=== PATIENT | male | born 1955 | race Caucasian/White ===

== ENCOUNTER 2024-07-05 10:20 | Inpatient (IN) ==
--- NOTE | 2024-06-30 10:07 | Anesthesiology Consultation ---
Date of Service June 30, 2024 Assessment & Plan (1) Encounter for pre-operative examination: - awaiting surgeon ordered medical clearance, Chetna Weston [facility]. - Per manager assessment on 06/30/24: No known infectious disease contacts, current infectious disease symptoms in past 10 days or COVID positive test result in the past 30 days. Chart Review Chart Review: Pending: Refer to Additional Notes / Consult section and Patient NOT seen in Pre Admission Testing History Surgery Operation Date: 07/05/24 12:15 Proposed Procedures p L3-L5 Revision Decompression and Fusion - Vickey Cohen, Height/Weight Height: 5 ft 9 in Weight: 86.183 kg Allergies Allergy/AdvReac Type Severity Reaction Status Date / Time bee venom protein (honey bee) Allergy Severe Anaphylaxis Verified 06/30/24 09:36 hydrocodone Allergy Severe Hives Verified 06/30/24 09:36 morphine Allergy Severe Hives Verified 06/30/24 09:36 oxycodone Allergy Severe Hives Verified 06/30/24 09:36 Medications Home Medications Medication Instructions Recorded Confirmed Last Taken multivitamin 1 tab PO QAM 01/07/22 06/30/24 02/04/22 sennosides 8.6 mg tablet 8.6 mg PO QAM 01/07/22 06/30/24 02/04/22 ascorbic acid (vitamin C) 250 mg 250 mg PO DAILY 06/30/24 06/30/24 Unknown tablet (Vitamin C) celecoxib 200 mg capsule 200 mg PO BID 06/30/24 06/30/24 Unknown cholecalciferol (vitamin D3) 125 125 mcg PO BID 06/30/24 06/30/24 Unknown mcg (5,000 unit) tablet (Vitamin D3) gabapentin 300 mg tablet 300 mg PO TID 06/30/24 06/30/24 Unknown saw palmetto 160 mg capsule 160 mg PO QAM 06/30/24 06/30/24 Unknown Past Medical History Medical History History of asthma no recent problems, no longer uses inhaler History of COVID-19 06/10, not hospitalized, fatigue, body aches>resolved History of postoperative nausea and vomiting severe, iv meds have not helped in past, questioning scop patch? Hx of fracture of ankle RT, fusion Hx of rotator cuff tear RT.- surgery Hx of sarcoidosis (1982) no current issues Past Family History Family History Other No pertinent family history Past Surgical History Surgical History History of back surgery x2; "ruptured" discs; removal bone spurs from spine History of bronchoscopy History of open reduction and internal fixation (ORIF) procedure RT ankle fusion History of right hip replacement (11/2023) dr. gallardo - fady Hx of bilateral cataract extraction (2021) Hx of cervical spine surgery x4; fusion "between your shoulders up to the last 2 of the top of my neck" c3-t2, anterior and posterior limited rom in all directions Hx of colonoscopy Hx of hernia repair triple hernia - [facility] Hx of rotator cuff surgery rt Social History Smoking Status: Never smoker Do You Dip or Chew Tobacco: No Hx Alcohol Use: Yes Alcohol type: beer alcohol intake frequency: a few times a week Hx Substance Use: No substance use type: does not use Lab Results Anesthesia Preop Results Results Anesthesia Widget: WBC 6.30 K/ul (4.8-10.8) 06/29/24 Hgb 14.5 g/dl (14.0-18.0) 06/29/24 Hct 42.3 % (42.0-52.0) 06/29/24 Plt 180 K/uL (130-400) 06/29/24 Na 137 mmol/L (136-145) 06/29/24 K 4.5 mmol/L (3.5-5.1) 06/29/24 Cl 103 mmol/L (98-107) 06/29/24 CO2 28 mmol/L (21-32) 06/29/24 BUN 22 mg/dl (6-23) 06/29/24 Creat 1.29 mg/dl (0.6-1.4) 06/29/24 Glucose Level 93 mg/dl (70-99(Fasting)) 06/29/24 PT 11.4 Seconds (9.0-12.0) 06/29/24 PTT 25 Seconds (21-31) 06/29/24 INR 1.1 (0.9-1.1) 06/29/24 Urine Color Yellow 06/29/24 Urine Appearance Clear (Clear) 06/29/24 Urine pH 6.0 (4.5-7.5) 06/29/24 Urine Specific [place] 1.009 (1.000-1.030) 06/29/24 Urine Protein Negative (Negative) 06/29/24 Urine Glucose (UA) Negative (Negative) 06/29/24 Urine Ketones Negative (Negative) 06/29/24 Urine Blood Negative (Negative) 06/29/24 Urine Nitrite Negative (Negative) 06/29/24 Urine Bilirubin Negative (Negative) 06/29/24 Urine Urobilinogen Negative (Negative) 06/29/24 Urine Leukocyte Esterase Negative (Negative) 06/29/24 Blood Type O Positive 06/29/24 Antibody Screen NEGATIVE 06/29/24 Testing Electrocardiogram Date: 06/29/24 Sinus bradycardia, rate 58 bpm Incomplete RBBB Chest X-Ray Date: 06/29/24 No acute cardiopulmonary disease.
[2024-07-05] MEDS ORDERED: LIDOCAINE 2% 2 ML VIAL/AMP(20MG/ML) INFIL ONE (10:41)
[2024-07-05] MEDS ORDERED: ROCURONIUM BROMIDE 10 MG/ML 5 ML VIAL IV ONE (10:41)
[2024-07-05] MEDS ORDERED: PROPOFOL IV EMULSION 10 MG/ML 20 ML VIAL IV ONE (10:41)
[2024-07-05] MEDS ORDERED: MIDAZOLAM HCL 1 MG/ML 2ML VIAL ONE (10:41)
[2024-07-05] MEDS ORDERED: fentaNYL citrate PF 100 MCG/2 ML VIAL ONE ×2 (10:41→14:32)
[2024-07-05] MEDS ORDERED: ONDANSETRON INJ 2 MG/ML 2 ML VIAL ONE ×2 (10:41→14:05)
[2024-07-05] MEDS ORDERED: DEXAMETHASONE SOD INJ 4 MG/ML VIAL ONE (10:41)
[2024-07-05] MEDS: LR 15ML/HR IV SCH (10:58)
[2024-07-05] MEDS: LR 60ML/HR IV SCH (10:58)
[2024-07-05] MEDS: GABAPENTIN 300 MG CAP PO SCH ×2 (10:58→20:29)
[2024-07-05] MEDS: CeleBREX 200 MG CAP PO SCH (10:58)
[2024-07-05] MEDS: ACETAMINOPHEN 500 MG TAB PO SCH (10:58)
--- NOTE | 2024-07-05 11:32 | History & Physical Bridge Note ---
Date of Service July 05, 2024 History & Physical Bridge Note I have examined the patient, reviewed the History & Physical and in the interval since the performance of the History & Physical I have noted the following changes of clinical significance: no changes noted
--- NOTE | 2024-07-05 11:33 | History & Physical Report ---
Date of Service July 05, 2024 Assessment & Plan (1) Lumbosacral spondylosis with radiculopathy: Plan: L3-L5 revision decompression and fusion History of Present Illness Chief Complaint: Back and bilateral leg pain Primary Care Provider: Chetna Larry This is a 69-year-old male who presents with chronic system back and bilateral leg pain and failing course of nonoperative care is here for surgical invention. Allergies Allergy/AdvReac Type Severity Reaction Status Date / Time bee venom protein (honey bee) Allergy Severe Anaphylaxis Verified 07/05/24 10:50 hydrocodone Allergy Severe Hives Verified 07/05/24 10:50 morphine Allergy Severe Hives Verified 07/05/24 10:50 oxycodone Allergy Severe Hives Verified 07/05/24 10:50 Home Medications Medication Instructions Recorded Confirmed Type multivitamin 1 tab PO QAM 01/07/22 07/05/24 History sennosides 8.6 mg tablet 8.6 mg PO QAM 01/07/22 07/05/24 History ascorbic acid (vitamin C) 250 mg 250 mg PO DAILY 06/30/24 07/05/24 History tablet (Vitamin C) celecoxib 200 mg capsule 200 mg PO BID 06/30/24 07/05/24 History cholecalciferol (vitamin D3) 125 125 mcg PO BID 06/30/24 07/05/24 History mcg (5,000 unit) tablet (Vitamin D3) gabapentin 300 mg tablet 300 mg PO TID 06/30/24 07/05/24 History saw palmetto 160 mg capsule 160 mg PO QAM 06/30/24 07/05/24 History Past Med/Surg History Problem List (Updated 07/05/24 @ 11:32 by Vickey Cohen DO) Lumbosacral spondylosis with radiculopathy Encounter for pre-operative examination Medical History History of asthma no recent problems, no longer uses inhaler History of COVID-19 06/10, not hospitalized, fatigue, body aches>resolved History of postoperative nausea and vomiting severe, iv meds have not helped in past, questioning scop patch? Hx of fracture of ankle RT, fusion Hx of rotator cuff tear RT.- surgery Hx of sarcoidosis (1982) no current issues Surgical History History of back surgery x2; "ruptured" discs; removal bone spurs from spine History of bronchoscopy History of open reduction and internal fixation (ORIF) procedure RT ankle fusion History of right hip replacement (11/2023) dr. gallardo - jack shrestha Hx of bilateral cataract extraction (2021) Hx of cervical spine surgery x4; fusion "between your shoulders up to the last 2 of the top of my neck" c3-t2, anterior and posterior limited rom in all directions Hx of colonoscopy Hx of hernia repair triple hernia - [facility] Hx of rotator cuff surgery rt Family History Other No pertinent family history Social History Smoking Status: Never smoker Second Hand Exposure: No; Do You Dip or Chew Tobacco: No; Tobacco Cessation Education Requested by Patient: No Hx Alcohol Use: Yes Alcohol type: beer Hx Substance Use: No Preferred Language: Tajik Communication Ability: Effective Destination Specialist Required: No Beliefs That Will Affect Care: None Current Living Situation: Spouse Other Information That Helps Us Care for You: No Feels Safe at Home: Yes Safety Concerns: Feels Safe At This Time Assistive Devices: Glasses Physical Exam Physical Exam: Patient is alert and oriented heart regular rhythm lungs clear Results & Data Results & Data Vital Signs (Past 12 Hours) Vital Signs Temp Pulse Resp BP Pulse Ox O2 Del Method 07/05/24 10:43 36.4 C L 97 H 20 155/97 H 97 Room Air
[2024-07-05] MEDS ORDERED: KETAMINE HCL 10MG/ML SYR ONE (11:54)
[2024-07-05] MEDS: ceFAZolin 2000MG 2,000 MG/15 ML SYR IV SCH ×2 (12:05→20:29)
[2024-07-05] MEDS ORDERED: diphenhydrAMINE 50 MG/ML VIAL ONE (12:30)
[2024-07-05] MEDS ORDERED: GLYCOPYRROLATE 0.2 MG/ML VIAL ONE ×3 (12:31→14:26)
[2024-07-05] MEDS ORDERED: PHENYLEPHRINE 100MCG/ML 5ML SYR ONE (12:39)
[2024-07-05] MEDS ORDERED: HYDROmorphone INJ 2 MG/ML SYR/VIAL IV PRN (12:40)
[2024-07-05] MEDS ORDERED: ONDANSETRON INJ 2 MG/ML 2 ML VIAL IV PRN (12:40)
[2024-07-05] MEDS ORDERED: ePHEDrine sulfate 50 MG/ML AMP IV PRN (12:40)
[2024-07-05] MEDS ORDERED: ATROPINE SULFATE 0.1 MG/ML 10ML SYR IV PRN (12:40)
[2024-07-05] MEDS ORDERED: PROMETHAZINE HCL 6.25 MG in SODIUM CHLORIDE 0.9% 50 ML IV PRN (12:40)
[2024-07-05] MEDS: ceFAZolin 330 MG/ML 1 GM VIAL ONE (12:57)
[2024-07-05] MEDS: BUPIVACAINE/EPINEPHRINE 0.25% 1:200,000 30 ML VIAL ONE (12:57)
[2024-07-05] MEDS ORDERED: ePHEDrine sulfate 50 MG/5 ML SYR ONE (13:04)
[2024-07-05] MEDS: FLOSEAL HEMOSTATIC MATRIX 10ML TOP ONE (14:20)
[2024-07-05] MEDS ORDERED: NEOSTIGMINE METHYLSULFATE 1 MG/ML 10ML VIAL ONE (14:26)
--- NOTE | 2024-07-05 14:31 | Operative Report ---
Post Operative Report Pre & Post Diagnosis Operation Date: 07/05/24 12:15 Pre-Op Diagnosis: #1 lumbosacral spondylosis with radiculopathy #2 lumbar spondylolisthesis with neurogenic claudication Post-Op Diagnosis: Same I identified the patient and participated in the time-out.: Yes Procedure Operation Date: 07/05/24 12:15 Actual Procedures #1 revision decompression with bilateral medial facetectomies and foraminotomies L3-L4 L4-L5. #2 posterior spinal fusion L3-L4 L4-L5. #3 placed posterior instrumentation L3-L5. #4 interbody fusion L3-L4 L4-L5 #5 placement of Spira 14 x 26 mm at L3-L4 and 13 x 26 mm x 2 at L4-L5. #6 placement locally harvested morselized autograft in the posterior gutters. #7 placement infuse collagen sponge combined with Koros in the posterior lateral gutters and os design interbody space. #8 application of versa wrap over the exposed dura. Surgeon Vickey Cohen, Plywood Matcher Zoie Hurst Estimated Blood Loss 200 Findings Consistent with Post-Op Diagnosis Specimens None Indications This is a 69-year-old male presents above-mentioned diagnosis after failing course of nonoperative care is here for surgical invention. Description of Procedure Patient was met with identified informed consent obtained. Patient was then taken to the operative suite underwent intubation placed in a prone position on the Wood table on top of the Flex frame. All bony prominences well-padded eyes inspected to ensure no external pressure placed upon them. This point the lumbar spine was prepped and draped in normal sterile fashion. Sharp dissection with the assistance of Bovie cautery performed down to and exposing the remaining lamina and transverse processes of L3 L4-5 bilaterally. From caudal to cephalad fashion revision complete laminectomy of L4 was performed including bilateral medial facetectomies and foraminotomies addressing severe subarticular and foraminal stenosis. Then performed a complete revision laminectomy of L3 with bilateral medial facetectomies and foraminotomies addressing severe spinal stenosis. Pedicle screws were then placed at L3-L4-L5 bilaterally with assistance of fluoroscopy and appropriate size jose francisco placed. By way of transforaminal approach on the left discectomy of L4-L5 was performed. Endplates guarded to subcortical bleeding bone and a 13 x 26 mm spiral cage filled with os design tapped in position. Then proceeded to the right transforaminal region at L4-L5. Discectomy performed. Endplates guided to subcortical bleeding bone and a second 13 x 26 mm Spira cage filled with os designed tapped into position. I then proceeded to L3-L4 by way of transforaminal approach on the left a complete discectomy was performed endplates corrected to subcortical bleeding bone and a 14 x 26 mm Spira cage filled with os designed tapped in position. The rods were then compressed locked in final position bilaterally. The transverse processes of L3 L4-5 burred to subcortical bleeding bone. Infuse collagen sponge, with Koros and locally harvested morselized graft placed in posterior gutters. Versa wrap placed over the exposed dura. 15 round CARSON drain inserted. Incision was then closed with 1 Vicryl the fascia 2-0 Vicryl subcutaneously and 4 Monocryl for final skin closure. Steri-Strips sterile dressing placed. Patient waken taken to PACU stable condition. Please note spinal cord monitoring was utilized at the procedure no changes noted. Zoie Hurst was present at the entire surgery involved the patient positioning complex portion of the surgery and fascial closure. Im ordering 20 grams of Triple Sapphire Collagen Powder ([employer] [id number]) to treat an incision wound that was caused by a spine procedure. The incision is approximately 2 cm(W) x 4 cm(L) into the joint (D) in size and is a full thickness wound. Triple Sapphire collagen comes in 1 gram packets so 20 packets were ordered. Given the size of the wound, with light to moderate exudate I chose to order a 20 day supply. The patient will be provided instructions for proper application of the collagen wound kit. The patient will be asked to apply the collagen powder daily and then cover it with sterile dressings dispensed. Collagen was selected as I expect the collagen to attract monocytes and fibroblasts, act as a sacrificial substrate for MMPs, and ultimately proved a matrix for tissue and vessel growth. The collagen will act as a primary dressing in this scenario. It is medically necessary for proper healing of th pancho wounds to improve bioavailability and contact with each wound surface, this is also to help prevent infection of wounds and promote healing ultimately leading to a better healing outcome and limit the risk of infection. I attest to the content of the Intraoperative Record and any orders documented therein. Any exceptions are noted below.
--- NOTE | 2024-07-05 14:42 | Fluoroscopy Report ---
FL lumbar spine 2-3V CLINICAL HISTORY: L3-L5 DECOMP/FUSION COMPARISON STUDY: None FLUOROSCOPY TIME: 27 seconds FLUOROSCOPY IMAGES: 2 EXPOSURE DOSE: 23.87 mGy FINDINGS: Posterior interbody rods and screw fusion hardware is noted at 3 levels which appears to be L3-L5. Hardware appears intact. No unexpected opaque foreign bodies. Note that the images were submi tted following completion of the surgery. IMPRESSION: Fluoroscopic assistance as above. ACT 112: Negative or not required by law. Electronically signed by: Pradip Keith M.D. 07/05/2024 2:41 PM
[2024-07-05] MEDS: fentaNYL citrate PF 100 MCG/2 ML VIAL IV PRN (15:05)
--- OUTSIDE RECORDS SUMMARY | 2024-07-05 15:11 | External Medical Summary | Continuity of Care Document ---
Author Name Unknown Organization [place] Address [address], [place] [address] Phone [phone] Care Team Providers Care Dumpster Driver Name Role Phone Cl Donaldson MD Care Team Information Recei stefan [phone] Problems Active Problems Provider Date Spinal stenosis of lumbar region Onset: Allergy to bee venom Avni Farrar DO Onset: 0 02/08/2019 Sarcoidosis Chetna Larry PA-C Onset: Note: Document: 11/10/23 - P ulmonary Consult Lumbar radiculopathy Chetna Larry PA-C Onset: 0 11/10/2023 Social History Type Date Description Comments Sex Unknown Tobacco Use Reviewed: 06/30/24 Never Smoked Cigarette s Tobacco Use Reviewed: 06/30/24 Never Smoked Cigars Tobacco Use Reviewed: 06/30/24 Never Smoked A Pipe Smoking Status Reviewed: 06/30/24 Never Smoked A Pipe Smokeless Tobacco 06/30/2024 Never Used Smokeless To bacco ETOH Use 11/14/2023 Occasionally consumes alcoho l Tobacco Use Start: Unknown Patient has never smoked Recreational Drug Use 11/14/2023 Denies Drug Use Allergies and adverse reactions Active Allergies Criticality Reaction | Severity Comments Date Beestings Unable to assess criticality 01/06/2019 Oxycodone Unable to assess criticality Difficulty breathing, Hives | Severe 05/02/2020 Morphine Unable to assess criticality itching, allergc reaction 05/05/2020 Tizanidine Unable to assess criticality 06/06/2023 Medications Active Medications SIG Qnty Indications Ordering Provider Date Doxycycline [id number] Capsules 2 by mouth for 1 time dose(for tick bite prophylaxis) 2caps M47.26 Avni Farrar DO 06/15/2024 [id number] Capsules 1 by mouth every day day 1, 1 by mouth twice a day day 2, then 1 by mouth three times a day 90caps M47.26 Avni Farrar DO 06/15/2024 [id number] Tablets 1 by mouth as needed 90tabs Avni Farrar DO 11/14/2023 [id number] Capsules take one capsule by mouth daily as needed for pain 30caps M25.512 Avni Farrar DO 11/14/2023 Hernia Support Right MediumMisc wear daily 1units RAHEEL Escamilla 07/05/2022 Multivitamin AdultTablets 1 by mouth every day 90tabs Avni Farrar DO 01/06/2019 Saw [id number] Capsules 1 by mouth every day Unknown Maira-C500mg Tablets 2 by mouth every day Unknown Epipen 2-Pak0.3mg/0.3ML Solution Auto-Inject as directed for bee sting allergy 2units Avni Farrar DO Stool [id number] Capsules 1 by mouth twice a day 60caps Sonja Barnard MD, PhD History Medications Doxycycline [id number] Tablets 1 by mouth twice a day x7 days 14tabs Avni Farrar DO 05/06/2024 - 06/15/2024 Medications Administered in Office Medication SIG Qnty Indications Ordering Provider Date Injection Ketorolac Trometha mine Per 15 mg/.5cc (Toradol)Injection Chetna Larry PA-C 10/24/2023 Injection Methylprednisolone Acetate 20 MGInjection Chetna Larry PA-C 10/24/2023 Injection Diphenhydramine Hc i To 50 MGInjection Avni Farrar DO 020 Injection Methylprednisolone Acetate 20 MGInjection Avni Farrar DO 05/02/2020 Immunizations CPT Code Status Date Vaccine Lot # [id number] Given 05/06/2024 Influenza Vac, Split, Preservative Free High Dose Age 65 & > [id number] Given 04/19/2024 Tdap (Tetanus, diphtheria & acel. pertussis) Adacel or Boostrix [id number] 14297 Given 04/17/2023 Influenza Vaccine High Do se 0.5ML Age 65 & > [id number] Given 04/16/2021 Pneumococcal Vaccine/Pneu movax 23 [id number] 23821 Given 04/16/2021 Influenza Vaccine High Do se 0.5ML Age 65 & > [id number] U-FLU Given 06/23/2020 Influenza,Unspecified 63582 Given 03/24/2019 Influenza Vacci ne, Inactivated, Subunit, Adjuvanted, For [facility] [id number] 45657 Given 07/07/2018 Pneumococcal Conjugate-Pr evnar 13 [id number] Refused 06/15/2024 Moderna Sars-Co v-2 (Cov-19) vacc,100 mcg/ 0.5 mL 12Y+EMR Doc Only 09000 Refused 06/15/2024 Shingrix [id number] Refused 11/06/2022 Moderna Sars-Co v-2 (Covid-19) Vaccine, BiValent Booster 12y+ 61508 Refused 11/06/2022 Moderna Sars-Co v-2 (Cov-19) vacc,100 mcg/ 0.5 mL 12Y+EMR Doc Only 80618 Refused 11/06/2022 Shingrix 96111 Refused 10/30/2020 Moderna Sars-Co v-2 (Cov-19) vacc,100 mcg/ 0.5 mL 12Y+EMR Doc Only 65806 Refused 08/17/2020 Pneumococcal Vaccine/Pneu movax 23 [id number] Refused 05/02/2020 Shingrix Vital Signs Date Vital Result Comment 06/30/2024 8:29am BP Systolic 120 mmHg BP Diastolic 80 mmHg Body Temperature 98.0 F Heart Rate 74 /min Respiratory Rate 16 /min Weight 191.25 lb Weight 86.751 kg 06/15/2024 8:30am BP Systolic 110 mmHg BP Diastolic 72 mmHg Body Temperature 97.5 F Heart Rate 68 /min Respiratory Rate 16 /min Weight 182.00 lb Weight 82.555 kg Height 68.75 inches 5'8.75" BMI (Body Mass Index) 27.1 kg/m2 [place] Body Weight 154 lb Results Test Acquired Date Facility Test Result H/L Range N ote Lipid 05/17/2024 [facility] [address] [place] [address] [phone] Cholesterol 176 mg/dL 0-200 1 Triglyceride 65 mg/dL 0-150 2 HDLD 56 mg/dL See Comment 3 Measured LDL 130 mg/dL 0-130 4 Calc VLDL 13.0 mg/dL See Comment 5 Chol/HDL 3.1 RATIO See Comment 6 Non-HDL 120 mg/dL See Comment 7 Comp. Met 05/17/2024 [facility] [address] [facility] [address] [phone] Glucose 93 mg/dL 70-110 BUN 17 mg/dL 6-25 Creatinine 1.1 mg/dL 0.7-1.3 Sodium 140 mEq/L 135-145 Potassium 4.4 mEq/L 3.5-5.0 Chloride 103 mEq/L 95-107 Co-2 29 mEq/L 24-31 Alk Phos 61 IU/L 43-122 Alt(SGPT) 21 IU/L 10-40 Ast(Sgot) 27 IU/L 3-42 T.Bilirubin 0.9 mg/dL 0.1-1.3 Calcium 9.3 mg/dL 8.5-10.6 Tot.Protein 6.3 g/dL 5.8-8.0 Albumin 4.0 g/dL 3.0-5.2 Globulin 2.3 g/dL 2.0-3.4 GFR 70 ML/MIN/1.73S QM >60 1 CHOLESTEROL Less than 200mg/dl Low risk 201-239 mg/dl Borderline risk Equal to or greater 240mg/dl High risk 2 TRIGLYCERIDES Less than 150mg/dl Normal 150-199mg/dl Borderline 200-499mg/dl High Greater than 500mg/dl Very High 3 HDL <40mg/dl Elevated Risk 41-59mg/dl Risk >=60mg/dl Least Risk 4 LDL <100mg/dl Optimal 100-129mg/dl Near Optimal 130-159mg/dl Borderline High 160-189mg/dl High >=190 Very High 5 VLDL Less than 30mg/dl Normal 6 CHOL/HDL <4.0 Optimal 4.0-5.0 Borderline >6.0 High Risk 7 NON-HDL 30mg/dl higher than LDL Target Procedures Date Code Description Status 06/15/2024 G2211 Continuation of care e/m vis it add on Completed 05/17/2024 78706 Venipuncture Routine Complet ed 05/06/2024 G0008 Influenza Admin Completed 06/20/2022 [id number] Colonoscopy Completed Medical Devices Description No Information Available Encounters Type Date Location Provider Dx Diagnosis Office Visit 06/15/2024 8:45a [place] Chetna Larry PA-C M47.26 Other spondyl osis with radiculopathy, lumbar region M54.12 Radiculopathy, cervi sary region D86.0 Sarcoidosis of lung K21.9 Gastro-esophageal re flux disease without esophagitis G47.33 Obstructive sleep ap [place] (adult) (pediatric) E78.2 Mixed hyperlipidemia Office Visit 04/21/2024 3:00p [place] Aroldo johnson, S61.311D Laceration w/o fb of l idx fngr w damage to nail, subs Assessments Date Code Description Provider 06/30/2024 M48.062 Spinal stenosis, lumbar region with neurogenic claudication Sakina Rai MD 06/15/2024 M47.26 Other spondylosi s with radiculopathy, lumbar region Chetna NIGEL Larry 06/15/2024 M54.12 Radiculopathy, cervical jen on Chetna NIGEL Larry 06/15/2024 D86.0 Sarcoidosis of lung Chetna Larry PA-C 06/15/2024 K21.9 Gastro-esophagea l reflux disease without esophagitis Chetna NIGEL Larry 06/15/2024 G47.33 Obstructive slee p apnea (adult) (pediatric) Chetnaher Kendy PA-C 06/15/2024 E78.2 Mixed hyperlipidemia Chetna Larry PA-C 05/17/2024 E78.2 Mixed hyperlipidemia Cl Sanchez JR, DO 05/17/2024 E78.2 Mixed hyperlipidemia Lab [place] 05/06/2024 Z23 Encounter for immunization H maurilio Larry PA-C 04/21/2024 S61.311D Laceration witho ut foreign body of left index finger with damage to nail, subsequent encounter Aroldo Argueta DO Plan of Treatment Future Appointment(s):* 12/14/2024 8:30 am - Chetna Larry PA-C at [place] * 12/07/2024 7:30 am - [facility] [place] [facility] [place] 06/30/2024 - Sakina Rai MD* M48.062 Spinal stenosis, lumbar region with neurogenic claudication Functional Status Description No Information Available Mental Status Description No Information Available Referrals Description No Information Available
--- OUTSIDE RECORDS SUMMARY | 2024-07-05 15:11 | External Medical Summary | Continuity of Care Document ---
Author Name Unknown Organization [place] Address [address], [place] [address] Phone [phone] Care Team Providers Care Kiln Burner Name Role Phone Cl Donaldson MD Care Team Information Recei stefan [phone] Problems Active Problems Provider Date Spinal stenosis [...] SIG Qnty Indications Ordering Provider Date Doxycycline [id number] Capsules 2 by mouth for 1 time dose(for tick bite prophylaxis) 2caps M47.26 Avni Farrar DO 06/15/2024 [id number] Capsules 1 by mouth every day day 1, 1 by mouth twice a day day 2, then 1 by mouth three times a day 90caps M47.26 Avni Farrar DO 06/15/2024 [id number] Tablets 1 by mouth as needed 90tabs Avni Farrar DO 11/14/2023 [id number] Capsules take one capsule by mouth daily as needed for pain 30caps M25.512 Avni Farrar DO 11/14/2023 Hernia Support Right MediumMisc wear daily 1units RAHEEL Escamilla 07/05/2022 Multivitamin AdultTablets 1 by mouth every day 90tabs Avni Farrar DO 01/06/2019 Saw [id number] Capsules 1 by mouth every day Unknown Maira-C500mg Tablets 2 by mouth every day Unknown Epipen 2-Pak0.3mg/0.3ML Solution Auto-Inject as directed for bee sting allergy 2units Avni Farrar DO Stool Bobortuq467it Capsules 1 by mouth twice a day 60caps Sonja Barnard MD, PhD History Medications Doxycycline [id number] Tablets 1 by mouth twice a day [...] CPT Code Status Date Vaccine Lot # [id number] Given 05/06/2024 Influenza Vac, Split, Preservative Free High Dose Age 65 & > [id number] Given 04/19/2024 Tdap (Tetanus, diphtheria & acel. pertussis) Adacel or Boostrix [id number] 80833 Given 04/17/2023 Influenza Vaccine High Do se 0.5ML Age 65 & > [id number] Given 04/16/2021 Pneumococcal Vaccine/Pneu movax 23 [id number] 71113 Given 04/16/2021 Influenza Vaccine High Do se 0.5ML Age 65 & > [id number] U-FLU Given 06/23/2020 Influenza,Unspecified 22882 Given 03/24/2019 Influenza Vacci ne, Inactivated, Subunit, Adjuvanted, [place] [facility] [id number] 69682 Given 07/07/2018 Pneumococcal Conjugate-Pr evnar 13 [id number] Refused 06/15/2024 Moderna Sars-Co v-2 (Cov-19) vacc,100 mcg/ 0.5 mL 12Y+EMR Doc Only [id number] Refused 06/15/2024 Shingrix [id number] Refused 11/06/2022 Moderna Sars-Co v-2 (Covid-19) Vaccine, BiValent Booster 12y+ [id number] Refused 11/06/2022 Moderna Sars-Co v-2 (Cov-19) vacc,100 mcg/ 0.5 mL 12Y+EMR Doc Only 93681 Refused 11/06/2022 Shingrix 57169 Refused 10/30/2020 Moderna Sars-Co v-2 (Cov-19) vacc,100 mcg/ 0.5 mL 12Y+EMR Doc Only 18306 Refused 08/17/2020 Pneumococcal Vaccine/Pneu movax 23 [id number] Refused 05/02/2020 Shingrix Vital Signs Date Vital [...] 5'8.75" BMI (Body Mass Index) 27.1 kg/m2 [facility] Body Weight 154 lb Results Test Acquired Date Facility Test Result H/L Range N ote Lipid 05/17/2024 [facility] [address] [place] [address] [phone] Cholesterol 176 mg/dL 0-200 1 Triglyceride 65 mg/dL 0-150 2 HDLD 56 mg/dL See Comment 3 Measured LDL 130 mg/dL 0-130 4 Calc VLDL 13.0 mg/dL See Comment 5 Chol/HDL 3.1 RATIO See Comment 6 Non-HDL 120 mg/dL See Comment 7 Comp. Met 05/17/2024 [facility] [address] [facility] [place] [address] [phone] Glucose 93 mg/dL 70-110 BUN 17 mg/dL [...] e/m vis it add on Completed 05/17/2024 [id number] Venipuncture Routine Complet ed 05/06/2024 G0008 Influenza Admin Completed 06/20/2022 [id number] Colonoscopy Completed Medical Devices Description No Information Available Encounters Type Date Location Provider Dx Diagnosis Office Visit 06/15/2024 8:45a [place] Chetna Larry PA-C M47.26 Other spondyl osis with radiculopathy, lumbar region M54.12 Radiculopathy, cervi sary region D86.0 Sarcoidosis of lung K21.9 Gastro-esophageal re flux disease without esophagitis G47.33 Obstructive sleep ap elmira (adult) (pediatric) E78.2 Mixed hyperlipidemia Office Visit 04/21/2024 3:00p [place] Aroldo johnson, S61.311D Laceration w/o fb of [...] 8:30 am - Chetna Larry PA-C at [place] * 12/07/2024 7:30 am - [facility] [place] 06/30/2024 - Sakina Rai MD* M48.062 Spinal stenosis, lumbar region with neurogenic claudication Functional Status Description No Information Available Mental Status Description No Information Available Referrals Description No Information Available
--- NOTE | 2024-07-05 16:12 | Anesthesiology Progress Note ---
Date of Service July 05, 2024 Anesthesia Post Procedure Vital Signs Vital Signs: Temp Pulse Pulse Resp BP Pulse Ox O2 Del Method 07/05/24 16:05 36.4 C L 60 16 116/62 100 Nasal Cannula 07/05/24 15:55 55 L 12 109/69 97 Nasal Cannula 07/05/24 15:45 52 L 12 106/65 97 Nasal Cannula 07/05/24 15:35 58 L 14 108/67 94 Nasal Cannula 07/05/24 15:25 58 L 12 106/60 97 Nasal Cannula 07/05/24 15:15 56 L 14 101/58 L 96 Oxymask 07/05/24 15:05 64 12 102/60 97 Oxymask 07/05/24 14:55 60 12 105/59 L 97 Oxymask 07/05/24 14:45 36.1 C L 71 12 114/64 100 Oxymask 07/05/24 10:43 36.4 C L 97 H 20 155/97 H 97 Room Air O2 Flow Rate 07/05/24 16:05 2 07/05/24 15:55 2 07/05/24 15:45 2 07/05/24 15:35 2 07/05/24 15:25 2 07/05/24 15:15 3 07/05/24 15:05 3 07/05/24 14:55 3 07/05/24 14:45 6 07/05/24 10:43 Pain Intensity Left Leg: Pain Intensity: 5 Transfer of Care Handoff Completed per policy Notes Mental Status: alert / awake / arousable Patient Amnestic to Procedure: Yes Nausea / Vomiting: adequately controlled Pain: adequately controlled Airway Patency, RR, SpO2: stable & adequate BP & HR: stable & adequate Hydration State: stable & adequate Anesthetic Complications: no major complications apparent and Pt Satisfied with anesthetic care
[2024-07-05] MEDS ORDERED: hydrOXYzine HCl 25 MG TAB PO PRN (16:41)
[2024-07-05] MEDS ORDERED: DO NOT ADMINISTER FLU VACCINE PRN (16:41)
[2024-07-05] MEDS ORDERED: PROMETHAZINE 12.5 MG/50.5 ML BAG IV PRN (16:41)
[2024-07-05] MEDS ORDERED: LORazepam 2 MG/1 ML VIAL IV PRN (16:41)
[2024-07-05] MEDS ORDERED: LORazepam 0.5 MG TAB PO PRN (16:41)
[2024-07-05] MEDS ORDERED: METOCLOPRAMIDE HCL INJ 5 MG/ML 2 ML VIAL IV PRN (16:41)
[2024-07-05] MEDS ORDERED: ALUMINUM/MAGNESIUM SUSP 30 ML UDC PO PRN (16:41)
[2024-07-05] MEDS ORDERED: diphenhydrAMINE Capsule 25 MG CAP PO PRN (16:41)
[2024-07-05] MEDS ORDERED: NALOXONE HCL 0.4 MG/1 ML VIAL/CARP IV PRN (16:41)
[2024-07-05] MEDS ORDERED: SOD PHOSPHATE/SOD BIPHOSPHATE ENEMA 132 ML BTL PR PRN (16:41)
[2024-07-05] MEDS ORDERED: ONDANSETRON 4 MG OD TAB PO PRN (16:41)
[2024-07-05] MEDS ORDERED: DO NOT ADMINISTER PNEUMOCOCCAL VACCINE PRN (16:41)
[2024-07-05] MEDS ORDERED: FAMOTIDINE 20 MG TAB PO PRN (16:41)
[2024-07-05] MEDS ORDERED: ACETAMINOPHEN 1,000 MG/100 ML VIAL IV PRN (16:41)
[2024-07-05] MEDS: HYDROmorphone INJ 1 MG/ML SYRINGE IV PRN (16:58)
--- NOTE | 2024-07-05 17:19 | Consultation ---
Date of Consultation July 05, 2024 Assessment & Plan (1) Lumbosacral spondylosis with radiculopathy: (2) History of asthma: Plan Mr. Adame is a 69-year-old male that presented to the [facility] for a planned elective procedure under the care of Dr. Cohen after failed outpatient conservative management. He underwent an L3-L5 decompression and fusion surgery today. No additional contributing past medical or surgical history. Lumbosacral spondylosis with radiculopathy: POD# 0 s/pL3-L5 Decompression and Fusion surgery under the care of Dr. Cohen. Per ortho for pain control, wound care, anticoagulation and activities. Monitor H&H, baseline Hgb 14.5 from 12/10; will trend in AM continue incentive spirometry, PT/OT when appropriate History of asthma: Does not take any medications for asthma and has not had any recent flares Disposition: PCP: Dr. Chetna Larry CODE STATUS: Full code VTE prophylaxis: Per admitting team I spent a total of 62 minutes coordinating, documenting, and providing care for this patient excluding time spent in the performance of separately billed services. All of the aforementioned completed while collaborating with the assigned attending physician for a full treatment plan. Please see their addendum for further details. Supervising Physician Co-Signing Physician Notes Patient is a 69-year-old male with no significant past medical history was consulted for postop medical management. Patient underwent lumbar decompression, fusion surgery by Dr. Cohen for lumbosacral spondylosis with radiculopathy, spondylolisthesis with neurogenic claudication. Patient is doing well postoperatively. Pain at surgical site is controlled. He denies any chest pain, dyspnea, nausea, vomiting, abdominal pain. Currently requiring 2 L supplemental oxygen to maintain saturations. I personally reviewed blood work and imaging studies. Physical Exam: Vitals signs as noted above General Appearance:Moderately built and nourished, no apparent distress Head: normocephalic, Atraumatic Eyes: normal inspection, EOMI Neck: supple, Trachea midline Respiratory/Chest: Normal breath sounds, CTA, No accessory muscle use Cardiovascular: S1, S2, No murmur Abdomen/GI:Soft, Non tender, Bowel sounds present Back: Surgical site in dressing, drain Extremities/Musculoskeletal:normal inspection, no edema Neurologic/Psych:AAOX3, grossly no focal neurological deficits Skin: normal color, warm Lumbosacral spondylosis with radiculopathy Spondylolisthesis with neurogenic claudication S/P lumbar decompression, fusion surgery by Dr. Cohen on 07/05/2024 Pain control, wound care, activity, DVT prophylaxis as per primary team Bowel regimen to prevent constipation Incentive spirometry Monitor for postop anemia Wean off of supplemental oxygen as able Expect leukocytosis on repeat blood work tomorrow given dexamethasone use postoperatively. Advance diet as tolerated I personally interviewed and examined at bedside. Patient's care is coordinated with Kim PICKERING. I have reviewed the advanced practitioner's documentation, and I agree with plan of care. Please refer to the documentation above for details of patient's presentation and for discussion of other issues. I spent a total [id number] coordinating, documenting, and providing care for this patient excluding time spent in the performance of separately billed services. History of Present Illness Requesting Physician: Dr. Cohen Reason for Consultation: Postoperative medical management Attending Physician: Vickey Cohen, DO History of Present Illness Mr. Adame is a 69-year-old male that presented to the [facility] for a planned elective procedure under the care of Dr. Cohen after failed outpatient conservative management. He underwent an L3-L5 decompression and fusion surgery today. No additional contributing past medical history. Denies AMI or CVA history. Patient denies headache, dizziness, chest pain, palpitation, shortness of breath, N/V/D, hematuria, hematochezia. On examination, he is resting in his hospital bed in no apparent distress. He just received some pain medication with relief. He has a ansari catheter, his IV fluids were discontinued and he is tolerating clear liquids thus far without nausea or vomiting. He is on 2LNC which will be removed this evening. Confirmed he does not take any routine medications outside of the gabapentin and celebrex related to his back pain. He reports his last BM was yesterday and he is not passing flatulance yet. [facility] medical management in conjunction with Dr. Cohen. We are available 10/02 for any assistance via [place] text. Allergies Allergy/AdvReac Type Severity Reaction Status Date / Time bee venom protein (honey bee) Allergy Severe Anaphylaxis Verified 07/05/24 10:50 hydrocodone Allergy Severe Hives Verified 07/05/24 10:50 morphine Allergy Severe Hives Verified 07/05/24 10:50 oxycodone Allergy Severe Hives Verified 07/05/24 10:50 Home Medications Medication Instructions Recorded Confirmed Type multivitamin 1 tab PO QAM 01/07/22 07/05/24 History sennosides 8.6 mg tablet 8.6 mg PO QAM 01/07/22 07/05/24 History ascorbic acid (vitamin C) 250 mg 250 mg PO DAILY 06/30/24 07/05/24 History tablet (Vitamin C) celecoxib 200 mg capsule 200 mg PO BID 06/30/24 07/05/24 History cholecalciferol (vitamin D3) 125 125 mcg PO BID 06/30/24 07/05/24 History mcg (5,000 unit) tablet (Vitamin D3) gabapentin 300 mg tablet 300 mg PO TID 06/30/24 07/05/24 History saw palmetto 160 mg capsule 160 mg PO QAM 06/30/24 07/05/24 History Patient History Medical History History of asthma no recent problems, no longer uses inhaler History of postoperative nausea and vomiting severe, iv meds have not helped in past, questioning scop patch? Hx of rotator cuff tear RT.- surgery Hx of fracture of ankle RT, fusion Hx of sarcoidosis (1982) no current issues History of COVID-19 06/10, not hospitalized, fatigue, body aches>resolved Surgical History Hx of hernia repair triple hernia - nuriss tanya History of right hip replacement (11/2023) dr. gallardo - [facility] Hx of bilateral cataract extraction (2021) History of back surgery x2; "ruptured" discs; removal bone spurs from spine Hx of rotator cuff surgery rt History of open reduction and internal fixation (ORIF) procedure RT ankle fusion History of bronchoscopy Hx of cervical spine surgery x4; fusion "between your shoulders up to the last 2 of the top of my neck" c3-t2, anterior and posterior limited rom in all directions Hx of colonoscopy Family History Other No pertinent family history Social History Smoking Status: Never smoker Second Hand Exposure: No; Do You Dip or Chew Tobacco: No; Tobacco Cessation Education Requested by Patient: No Hx Alcohol Use: Yes Alcohol type: beer Hx Substance Use: No Preferred Language: Croatian Communication Ability: Effective Review Engineer Required: No Beliefs That Will Affect Care: None Current Living Situation: Spouse Other Information That Helps Us Care for You: No Feels Safe at Home: Yes Safety Concerns: Feels Safe At This Time Assistive Devices: Glasses Review of Systems Review of Systems: Neuro: (-) Falls, trauma, slurred speech HEENT: (-) COLE, dizziness, dysphagia, visual or auditory changes CV: (-) CP, palpitations, swelling Resp: (-) SOB GI: (-) appetite changes, N/V/D, bowel changes : (-) urinary changes Skin: (-) rashes Psych: (-) anxiety, depression Physical Exam Physical Exam: Neuro: AAOx4, PERRLA, no aphagia, memory changes, CNII-XII grossly intact HEENT: head normocephalic, moist mucus membranes CV: S1/S2, (-) M/G/R, (-) edema, cap refill < 3 seconds CARSON drain x1 with nuno red bloody output. Resp: Lungs CTA in all carter. On RA GI: Abdomen S/NT/ND, Ax4 bowel sounds, (-) CVA tenderness Musculoskeletal: 5/5 B/L UE strength, 5/5 B/L LE strength. No gait disturbance Skin: (-) rashes , (-) erythema. Vertical lower back dressing C/D/I post op Psych: euthymic mood Results & Data Vital Signs (Past 12 Hours) Vital Signs Temp Pulse Pulse Resp BP Pulse Ox O2 Del Method 07/05/24 17:00 75 16 119/74 95 Nasal Cannula 07/05/24 16:05 36.4 C L 60 16 116/62 100 Nasal Cannula 07/05/24 15:55 55 L 12 109/69 97 Nasal Cannula 07/05/24 15:45 52 L 12 106/65 97 Nasal Cannula 07/05/24 15:35 58 L 14 108/67 94 Nasal Cannula 07/05/24 15:25 58 L 12 106/60 97 Nasal Cannula 07/05/24 15:15 56 L 14 101/58 L 96 Oxymask 07/05/24 15:05 64 12 102/60 97 Oxymask 07/05/24 14:55 60 12 105/59 L 97 Oxymask 07/05/24 14:45 36.1 C L 71 12 114/64 100 Oxymask 07/05/24 10:43 36.4 C L 97 H 20 155/97 H 97 Room Air O2 Flow Rate 07/05/24 17:00 2 07/05/24 16:05 2 07/05/24 15:55 2 07/05/24 15:45 2 07/05/24 15:35 2 07/05/24 15:25 2 07/05/24 15:15 3 07/05/24 15:05 3 07/05/24 14:55 3 07/05/24 14:45 6 07/05/24 10:43 Diagnostic Findings Lumbar Spine X-Ray 07/05/24 00:00 FL lumbar spine 2-3V CLINICAL HISTORY: L3-L5 DECOMP/FUSION COMPARISON STUDY: None FLUOROSCOPY TIME: 27 seconds FLUOROSCOPY IMAGES: 2 EXPOSURE DOSE: 23.87 mGy FINDINGS: Posterior interbody rods and screw fusion hardware is noted at 3 lev els which appears to be L3-L5. Hardware appears intact. No unexpected opaque foreign bodies. Note that the images were submitted following completion of the surgery. IMPRESSION: Fluoroscopic assistance as above. ACT 112: Negative or not required by law. Electronically signed by: Pradip Keith M.D. 07/05/2024 2:41 PM
[2024-07-05] MEDS: traMADol HCL 50 MG TABLET PO PRN (18:08)
[2024-07-05] MEDS: KETOROLAC TROMETHAMINE 15 MG/ML VIAL IV PRN (20:29)
[2024-07-05] MEDS: CHOLECALCIFEROL 125 MCG (5,000 UNITS) TAB PO SCH (20:29)
[2024-07-05] MEDS: DOCUSATE SODIUM/SENNA 50/8.6MG TAB PO SCH (20:29)
[2024-07-05] MEDS: HYDROmorphone INJ 0.5 MG/0.5 ML SYR IV PRN (23:21)
[2024-07-06] MEDS: COUGH DROP (SUGAR FREE) LOZ 24 LOZ/1 BOX BUCCAL ONE (03:38)
[2024-07-06] MEDS: POLYETHYLENE (MIRALAX) 17 GM PACK PO SCH (05:04)
[2024-07-06 06:12] LABS: Basophils # (auto) 0.01 K/uL (0.00-0.20); Basophils % (auto) 0.1 %; Hematocrit (blood only) 36.3 % (42.0-52.0); Hemoglobin 12.5 g/dl (14.0-18.0); Immature Granulocytes # (auto) 0.08 K/uL (0.01-0.20); Immature Granulocytes % (auto) 0.5 %; Lymphocytes # (auto) 0.86 K/uL (1.20-3.40); Lymphocytes % (auto) 5.8 %; Mean Corpuscular Hemoglobin 31.3 pg (25.0-34.0); Mean Corpuscular Hgb Conc 34.4 g/dL (32.0-36.0); Mean Platelet Volume 10.2 fL (9.4-12.4); Monocytes # (auto) 0.93 K/uL (0.11-0.59); Monocytes % (auto) 6.3 %; Neutrophils # (auto) 12.99 K/uL (1.40-6.50); Neutrophils % (auto) 87.3 %; Platelet Count 180 K/uL (130-400); RDW Standard Deviation 43.2 fL (36.4-46.3); Red Blood Count 3.99 M/uL (4.70-6.10); White Blood Count 14.87 K/ul (4.8-10.8)
[2024-07-06 06:24] LABS: BUN Creatinine Ratio 19.9 (10-20); Calcium 8.6 mg/dl (8.6-10.3); Creatinine Clr Calc Pharmacy 49.8 ml/min; Magnesium 1.6 mg/dl (1.7-2.4); Potassium 4.1 mmol/L (3.5-5.1)
[2024-07-06] MEDS: MAGNESIUM SULFATE / D5W 1 GM/100 ML BAG IV SCH (08:31)
[2024-07-06] MEDS: ONDANSETRON INJ 2 MG/ML 2 ML VIAL IV PRN (08:31)
[2024-07-06] MEDS: dexAMETHasone 6 MG in SYRINGE 0 ML IV SCH (08:32)
[2024-07-06] MEDS: MULTIVITAMIN TAB PO SCH (08:32)
[2024-07-06] MEDS: ASCORBIC ACID 500 MG TAB PO SCH (08:32)
[2024-07-06] MEDS ORDERED: SENNA 8.6 MG TAB PO SCH (09:00)
--- NOTE | 2024-07-06 09:25 | Orthopedic Progress Note ---
Date of Service July 06, 2024 Assessment & Plan (1) Lumbosacral spondylosis with radiculopathy: Plan: At this time we will initiate physical therapy. Monitor his CARSON output. Hopefully discharge over next few days. Admission and Anticipated Discharge Date Admission Date: July 05, 2024 Subjective Patient's back pain is controlled leg symptoms markedly improved Physical Exam Physical Exam: Patient is sitting up in bed peers comfortable. Good strength testing. Results & Data Vital Signs (Past 12 Hours) Vital Signs Temp Pulse Resp BP Pulse Ox O2 Del Method 07/06/24 07:22 36.4 C L 67 16 101/59 L 95 Room Air 07/06/24 03:05 36.6 C 72 18 112/64 96 Room Air 07/05/24 23:07 36.6 C 73 18 107/63 95 Room Air 07/05/24 22:55 Room Air
--- NOTE | 2024-07-06 10:49 | Hospitalist Progress Note ---
Date of Service July 06, 2024 Assessment & Plan (1) Lumbosacral spondylosis with radiculopathy: Plan: Continue with inpatient care and recommendation postop per orthopedics. Continue with gabapentin and laxatives as needed. (2) History of asthma: Plan: Clinically stable, other than as needed treatment, he would not need any other medication. Plan Patient is doing overall well, no further input from medical standpoint, defer to primary team. No objection for discharge if primary team decides such. Admission and Anticipated Discharge Date Admission Date: July 05, 2024 Subjective Patient was seen and examined, he feels much better today, he was able to ambulate with the help of physical therapist and earlier he had pain and for which he received a dose of Dilaudid which made him a little nauseous but otherwise he is stable and in very good spirits. Physical Exam Physical Exam: VITALS: Reviewed. WEIGHT/BMI reviewed. GEN: Healthy appearing, well-developed, NAD. CV: RRR, no m/r/g. LUNGS: CTAB, no w/r/c. Results & Data Results & Data Vital Signs (Past 12 Hours) Vital Signs Temp Pulse Resp BP Pulse Ox O2 Del Method 07/06/24 08:30 Room Air 07/06/24 07:22 36.4 C L 67 16 101/59 L 95 Room Air 07/06/24 03:05 36.6 C 72 18 112/64 96 Room Air 07/05/24 23:07 36.6 C 73 18 107/63 95 Room Air 07/05/24 22:55 Room Air Laboratory Results Laboratory Results - last 24 hr 07/05/24 07/06/24 10:42 05:27 WBC 14.87 H RBC 3.99 L Hgb 12.5 L Hct 36.3 L MCV 91.0 MCH 31.3 MCHC 34.4 RDW Std Deviation 43.2 RDW Coeff of Azalia 13.0 Plt Count 180 MPV 10.2 Immature Gran % (Auto) 0.5 Neut % (Auto) 87.3 Lymph % (Auto) 5.8 Canadian % (Auto) 6.3 Eos % (Auto) 0.0 Baso % (Auto) 0.1 Neut # (Auto) 12.99 H Lymph # (Auto) 0.86 L Canadian # (Auto) 0.93 H Eos # (Auto) 0.00 Baso # (Auto) 0.01 Immature Gran # (Auto) 0.08 Sodium 132 L Potassium 4.1 Chloride 99 Carbon Dioxide 23 Anion Gap 10 BUN 27 H Creatinine 1.36 Est Cr Clr Drug Dosing 49.8 eGFR 55.64 BUN/Creatinine Ratio 19.9 Glucose 143 H Calcium 8.6 Magnesium 1.6 L Blood Type O Positive Antibody Screen NEGATIVE Crossmatch See Detail Diagnostic Findings Lumbar Spine X-Ray 07/05/24 00:00 FL lumbar spine 2-3V CLINICAL HISTORY: L3-L5 DECOMP/FUSION COMPARISON STUDY: None FLUOROSCOPY TIME: 27 seconds FLUOROSCOPY IMAGES: 2 EXPOSURE DOSE: 23.87 mGy FINDINGS: Posterior interbody rods and screw fusion hardware is noted at 3 levels which appears to be L3-L5. Hardware appears intact. No unexpected opaque foreign bodies. Note that the images were submitted following completion of the surgery. IMPRESSION: Fluoroscopic assistance as above. ACT 112: Negative or not required by law. Electronically signed by: Pradip Keith M.D. 07/05/2024 2:41 PM Medications Administered Current Inpatient Medications Acetaminophen (Acetaminophen 500 Mg Tab) 1,000 mg PO Q8H PRN PRN Reason: MILD Pain Scale 1,2,3 & Pre PT Stop: 08/04/24 16:40 Al Hydrox/Mg Hydrox/Simethicone (Aluminum/Magnesium Susp 30 Ml Udc) 30 ml PO Q6H PRN PRN Reason: Dyspepsia Stop: 08/04/24 16:40 Ascorbic Acid (Ascorbic Acid 500 Mg Tab) 250 mg PO DAILY [facility] Stop: 08/05/24 08:59 Last Admin: 07/06/24 08:32 Dose: 250 mg Bisacodyl (Bisacodyl 10 Mg Supp) 10 mg ND DAILY PRN PRN Reason: Constipation Stop: 08/04/24 16:40 Diphenhydramine HCl (Diphenhydramine Capsule 25 Mg Cap) 25 mg PO Q6H PRN PRN Reason: Allergic Rhinitis/Insomnia Stop: 08/04/24 16:40 Famotidine (Famotidine 20 Mg Tab) 20 mg PO Q12H PRN PRN Reason: Dyspepsia Stop: 08/04/24 16:40 Gabapentin (Gabapentin 300 Mg Cap) 300 mg PO TID ROBINSON Stop: 08/04/24 20:59 Last Admin: 07/06/24 08:34 Dose: 300 mg Hydromorphone HCl (Hydromorphone Inj 0.5 Mg/0.5 Ml Syr) 0.5 mg IV Q3H PRN PRN Reason: MODERATE Pain (Scale 4,5,6) & Pre PT Stop: 07/19/24 16:40 Last Admin: 07/06/24 08:31 Dose: 0.5 mg Hydromorphone HCl (Hydromorphone Inj 1 Mg/Ml Syringe) 1 mg IV Q3H PRN PRN Reason: SEVERE Pain (Scale 7,8,9,10) Stop: 07/19/24 16:40 Last Admin: 07/05/24 16:58 Dose: 1 mg Hydroxyzine HCl (Hydroxyzine Hcl 25 Mg Tab) 25 mg PO Q8H PRN PRN Reason: Anxiety Stop: 08/04/24 16:40 Acetaminophen (Ofirmev) 1,000 mg in 100 mls @ 400 mls/hr IV Q8H PRN PRN Reason: Pain Rating 1-3 & Pre PT Stop: 07/06/24 16:41 Promethazine HCl (Phenergan) 12.5 mg in 50.5 mls @ 202 mls/hr IV Q6H PRN PRN Reason: Nausea And Vomiting Stop: 08/04/24 16:40 Dexamethasone 6 mg/ Syringe 1.5 mls @ 1 mls/min IV DAILY [facility] Stop: 07/08/24 09:02 Last Admin: 07/06/24 08:32 Dose: 1 mls/min Magnesium Sulfate/Dextrose (Magnesium Sulfate / D5w) 1 gm in 100 mls @ 50 mls/ hr IV Q2H ROBINSON Stop: 07/06/24 11:43 Last Admin: 07/06/24 09:55 Dose: 50 mls/hr Influenza Virus Vaccine Quadrival (Do Not Administer Flu Vaccine) 1 each N/A PRN PRN PRN Reason: Notification Stop: 08/04/24 16:40 Ketorolac Tromethamine (Ketorolac Tromethamine 15 Mg/Ml Vial) 15 mg IV Q6H PRN PRN Reason: Pain Last Admin: 07/05/24 20:29 Dose: 15 mg Lorazepam (Lorazepam 0.5 Mg Tab) 0.5 mg PO Q8H PRN PRN Reason: Sedation/Anxiety Stop: 08/04/24 16:40 Lorazepam (Lorazepam 2 Mg/1 Ml Vial) 0.5 mg IV Q8H PRN PRN Reason: Sedation/Anxiety Stop: 08/04/24 16:40 Magnesium Hydroxide (Magnesium Hydroxide Susp 30 Ml Udc) 30 ml PO Q24H PRN PRN Reason: Constipation Stop: 08/04/24 16:40 Metoclopramide HCl (Metoclopramide Hcl Inj 5 Mg/Ml 2 Ml Vial) 10 mg IV Q6H PRN PRN Reason: Nausea &/or Vomiting Stop: 08/04/24 16:40 Multivitamins (Multivitamin Tab) 1 tab PO QAM ROBINSON Stop: 08/05/24 08:59 Last Admin: 07/06/24 08:32 Dose: 1 tab Naloxone HCl (Naloxone Hcl 0.4 Mg/1 Ml Vial/Carp) 0.1 mg IV Q5M PRN PRN Reason: Oversedation/Resp depression Stop: 08/04/24 16:40 Ondansetron HCl (Ondansetron Inj 2 Mg/Ml 2 Ml Vial) 4 mg IV Q6H PRN PRN Reason: Nausea &/or Vomiting Stop: 08/04/24 16:40 Last Admin: 07/06/24 08:31 Dose: 4 mg Ondansetron HCl (Ondansetron 4 Mg Od Tab) 4 mg PO Q6H PRN PRN Reason: Nausea Stop: 08/04/24 16:40 Pneumococcal Polyvalent Vaccine (Do Not Administer Pneumococcal Vaccine) 1 each N/A PRN PRN PRN Reason: Notification Stop: 08/04/24 16:40 Polyethylene Glycol (Polyethylene (Miralax) 17 Gm Pack) 17 gm PO Q6 ROBINSON Stop: 08/05/24 05:59 Last Admin: 07/06/24 05:04 Dose: 17 gm Senna/Docusate Sodium (Docusate Sodium/Senna 50/8.6mg Tab) 2 tab PO HS [facility] Stop: 08/04/24 20:59 Last Admin: 07/05/24 20:29 Dose: 2 tab Sodium Biphosphate/Sodium Phosphate (Sod Phosphate/Sod Biphosphate Enema 132 Ml Btl) 132 ml ND ONE PRN PRN Reason: Constipation Stop: 08/04/24 16:40 Tramadol HCl (Tramadol Hcl 50 Mg Tablet) 50 - 100 mg PO Q4H PRN PRN Reason: Moderate-Severe pain & Pre PT Stop: 08/04/24 16:40 Last Admin: 07/06/24 05:09 Dose: 100 mg Vitamin D (Cholecalciferol 125 Mcg (5,000 Units) Tab) 125 mcg PO BID ROBINSON Stop: 08/04/24 20:59 Last Admin: 07/06/24 08:33 Dose: 125 mcg
[2024-07-06] MEDS: ACETAMINOPHEN 500 MG TAB PO PRN (20:56)
[2024-07-07] MEDS: MAGNESIUM HYDROXIDE SUSP 30 ML UDC PO PRN (05:45)
--- NOTE | 2024-07-07 10:47 | Hospitalist Progress Note ---
Date of Service July 07, 2024 Assessment & Plan (1) Lumbosacral spondylosis with radiculopathy: Plan: Continue with inpatient care and recommendation postop per orthopedics. Continue with gabapentin and laxatives, the amount of output from the drain is being monitored daily. (2) History of asthma: Plan: Clinically stable, other than as needed treatment, he would not need any other medication. (3) Hypomagnesemia: Plan: Magnesium was 1.6, will place him on scheduled daily dose for 2 weeks. Plan Patient is doing overall well, the primary team may consider discharging him home tomorrow. Admission and Anticipated Discharge Date Admission Date: July 05, 2024 Subjective Patient was seen and examined, he is overall doing well, he had a problem with constipation and so far he has tried MiraLAX, I gave him options of using suppository or even enema. Physical Exam Physical Exam: VITALS: Reviewed. WEIGHT/BMI reviewed. GEN: Healthy appearing, well-developed, NAD. CV: RRR, no m/r/g. LUNGS: CTAB, no w/r/c. Results & Data Results & Data Vital Signs (Past 12 Hours) Vital Signs Temp Pulse Resp BP Pulse Ox O2 Del Method 07/07/24 07:20 36.3 C L 63 18 120/72 98 Room Air Laboratory Results Laboratory Results - last 24 hr 07/05/24 10:42 Crossmatch See Detail Medications Administered Current Inpatient Medications Acetaminophen (Acetaminophen 500 Mg Tab) 1,000 mg PO Q8H PRN PRN Reason: MILD Pain Scale 1,2,3 & Pre PT Stop: 08/04/24 16:40 Last Admin: 07/07/24 05:41 Dose: 1,000 mg Al Hydrox/Mg Hydrox/Simethicone (Aluminum/Magnesium Susp 30 Ml Udc) 30 ml PO Q6H PRN PRN Reason: Dyspepsia Stop: 08/04/24 16:40 Ascorbic Acid (Ascorbic Acid 500 Mg Tab) 250 mg PO DAILY [facility] Stop: 08/05/24 08:59 Last Admin: 07/07/24 07:29 Dose: 250 mg Bisacodyl (Bisacodyl 10 Mg Supp) 10 mg [place] DAILY PRN PRN Reason: Constipation Stop: 08/04/24 16:40 Diphenhydramine HCl (Diphenhydramine Capsule 25 Mg Cap) 25 mg PO Q6H PRN PRN Reason: Allergic Rhinitis/Insomnia Stop: 08/04/24 16:40 Famotidine (Famotidine 20 Mg Tab) 20 mg PO Q12H PRN PRN Reason: Dyspepsia Stop: 08/04/24 16:40 Gabapentin (Gabapentin 300 Mg Cap) 300 mg PO TID [facility] Stop: 08/04/24 20:59 Last Admin: 07/07/24 07:29 Dose: 300 mg Hydromorphone HCl (Hydromorphone Inj 0.5 Mg/0.5 Ml Syr) 0.5 mg IV Q3H PRN PRN Reason: MODERATE Pain (Scale 4,5,6) & Pre PT Stop: 07/19/24 16:40 Last Admin: 07/06/24 17:02 Dose: 0.5 mg Hydromorphone HCl (Hydromorphone Inj 1 Mg/Ml Syringe) 1 mg IV Q3H PRN PRN Reason: SEVERE Pain (Scale 7,8,9,10) Stop: 07/19/24 16:40 Last Admin: 07/05/24 16:58 Dose: 1 mg Hydroxyzine HCl (Hydroxyzine Hcl 25 Mg Tab) 25 mg PO Q8H PRN PRN Reason: Anxiety Stop: 08/04/24 16:40 Promethazine HCl (Phenergan) 12.5 mg in 50.5 mls @ 202 mls/hr IV Q6H PRN PRN Reason: Nausea And Vomiting Stop: 08/04/24 16:40 Dexamethasone 6 mg/ Syringe 1.5 mls @ 1 mls/min IV DAILY [facility] Stop: 07/08/24 09:02 Last Admin: 07/07/24 07:31 Dose: 1 mls/min Influenza Virus Vaccine Quadrival (Do Not Administer Flu Vaccine) 1 each N/A PRN PRN PRN Reason: Notification Stop: 08/04/24 16:40 Ketorolac Tromethamine (Ketorolac Tromethamine 15 Mg/Ml Vial) 15 mg IV Q6H PRN PRN Reason: Pain Last Admin: 07/05/24 20:29 Dose: 15 mg Lorazepam (Lorazepam 0.5 Mg Tab) 0.5 mg PO Q8H PRN PRN Reason: Sedation/Anxiety Stop: 08/04/24 16:40 Lorazepam (Lorazepam 2 Mg/1 Ml Vial) 0.5 mg IV Q8H PRN PRN Reason: Sedation/Anxiety Stop: 08/04/24 16:40 Magnesium Hydroxide (Magnesium Hydroxide Susp 30 Ml Udc) 30 ml PO Q24H PRN PRN Reason: Constipation Stop: 08/04/24 16:40 Last Admin: 07/07/24 05:45 Dose: 30 ml Metoclopramide HCl (Metoclopramide Hcl Inj 5 Mg/Ml 2 Ml Vial) 10 mg IV Q6H PRN PRN Reason: Nausea &/or Vomiting Stop: 08/04/24 16:40 Multivitamins (Multivitamin Tab) 1 tab PO QAM [facility] Stop: 08/05/24 08:59 Last Admin: 07/07/24 07:29 Dose: 1 tab Naloxone HCl (Naloxone Hcl 0.4 Mg/1 Ml Vial/Carp) 0.1 mg IV Q5M PRN PRN Reason: Oversedation/Resp depression Stop: 08/04/24 16:40 Ondansetron HCl (Ondansetron Inj 2 Mg/Ml 2 Ml Vial) 4 mg IV Q6H PRN PRN Reason: Nausea &/or Vomiting Stop: 08/04/24 16:40 Last Admin: 07/06/24 08:31 Dose: 4 mg Ondansetron HCl (Ondansetron 4 Mg Od Tab) 4 mg PO Q6H PRN PRN Reason: Nausea Stop: 08/04/24 16:40 Pneumococcal Polyvalent Vaccine (Do Not Administer Pneumococcal Vaccine) 1 each N/A PRN PRN PRN Reason: Notification Stop: 08/04/24 16:40 Polyethylene Glycol (Polyethylene (Miralax) 17 Gm Pack) 17 gm PO Q6 [facility] Stop: 08/05/24 05:59 Last Admin: 07/07/24 05:42 Dose: 17 gm Senna/Docusate Sodium (Docusate Sodium/Senna 50/8.6mg Tab) 2 tab PO HS [facility] Stop: 08/04/24 20:59 Last Admin: 07/06/24 20:57 Dose: 2 tab Sodium Biphosphate/Sodium Phosphate (Sod Phosphate/Sod Biphosphate Enema 132 Ml Btl) 132 ml [place] ONE PRN PRN Reason: Constipation Stop: 08/04/24 16:40 Tramadol HCl (Tramadol Hcl 50 Mg Tablet) 50 - 100 mg PO Q4H PRN PRN Reason: Moderate-Severe pain & Pre PT Stop: 08/04/24 16:40 Last Admin: 07/07/24 04:36 Dose: 100 mg Vitamin D (Cholecalciferol 125 Mcg (5,000 Units) Tab) 125 mcg PO BID [facility] Stop: 08/04/24 20:59 Last Admin: 07/07/24 07:29 Dose: 125 mcg
--- NOTE | 2024-07-07 10:55 | Orthopedic Progress Note ---
Date of Service July 07, 2024 Assessment & Plan (1) Lumbosacral spondylosis with radiculopathy: Plan: At this time continue physical therapy monitor his CARSON output anticipate discharge home tomorrow. Admission and Anticipated Discharge Date Admission Date: July 05, 2024 Subjective Back pain is controlled leg pain improved. He is still not had a bowel movement yet. Physical Exam Physical Exam: Patient is currently in bed having just gone for a walk. Distracted testing. Peers comfortable. Results & Data Vital Signs (Past 12 Hours) Vital Signs Temp Pulse Resp BP Pulse Ox O2 Del Method 07/07/24 07:20 36.3 C L 63 18 120/72 98 Room Air
[2024-07-07] MEDS: MAGNESIUM OXIDE 400 MG TAB PO SCH (11:21)
[2024-07-07] MEDS: bisacodyL 10 MG SUPP PR PRN (11:22)
[2024-07-08 07:24] VITALS: BP 128/73; RESP 17; TEMP 97.5; O2SAT 93
--- NOTE | 2024-07-08 08:36 | Hospitalist Progress Note ---
Date of Service July 08, 2024 Assessment & Plan (1) Lumbosacral spondylosis with radiculopathy: Plan: Continue with inpatient care and recommendation postop per orthopedics. Continue with gabapentin and laxatives, he did have a bowel movement yesterday. (2) History of asthma: Plan: Clinically stable, other than as needed treatment, he would not need any other medication. (3) Hypomagnesemia: Plan: Magnesium was 1.6, he would benefit from 1 to 2 weeks of magnesium supplement as outpatient at current dose. Plan Patient is doing overall well, the primary team may consider discharging him likely today. Admission and Anticipated Discharge Date Admission Date: July 05, 2024 Subjective Clinically doing much better, denied having any issue, he said that he was ready to be discharged. Physical Exam Physical Exam: VITALS: Reviewed. WEIGHT/BMI reviewed. GEN: Healthy appearing, well-developed, NAD. CV: RRR, no m/r/g. LUNGS: CTAB, no w/r/c. Results & Data Results & Data Vital Signs (Past 12 Hours) Vital Signs Temp Pulse Resp BP Pulse Ox O2 Del Method 07/08/24 07:23 36.4 C L 62 17 128/73 93 Room Air Medications Administered Current Inpatient Medications Acetaminophen (Acetaminophen 500 Mg Tab) 1,000 mg PO Q8H PRN PRN Reason: MILD Pain Scale 1,2,3 & Pre PT Stop: 08/04/24 16:40 Last Admin: 07/08/24 07:47 Dose: 1,000 mg Al Hydrox/Mg Hydrox/Simethicone (Aluminum/Magnesium Susp 30 Ml Udc) 30 ml PO Q6H PRN PRN Reason: Dyspepsia Stop: 08/04/24 16:40 Ascorbic Acid (Ascorbic Acid 500 Mg Tab) 250 mg PO DAILY [facility] Stop: 08/05/24 08:59 Last Admin: 07/08/24 07:47 Dose: 250 mg Bisacodyl (Bisacodyl 10 Mg Supp) 10 mg [place] DAILY PRN PRN Reason: Constipation Stop: 08/04/24 16:40 Last Admin: 07/07/24 11:22 Dose: 10 mg Diphenhydramine HCl (Diphenhydramine Capsule 25 Mg Cap) 25 mg PO Q6H PRN PRN Reason: Allergic Rhinitis/Insomnia Stop: 08/04/24 16:40 Famotidine (Famotidine 20 Mg Tab) 20 mg PO Q12H PRN PRN Reason: Dyspepsia Stop: 08/04/24 16:40 Gabapentin (Gabapentin 300 Mg Cap) 300 mg PO TID [facility] Stop: 08/04/24 20:59 Last Admin: 07/08/24 07:47 Dose: 300 mg Hydromorphone HCl (Hydromorphone Inj 0.5 Mg/0.5 Ml Syr) 0.5 mg IV Q3H PRN PRN Reason: MODERATE Pain (Scale 4,5,6) & Pre PT Stop: 07/19/24 16:40 Last Admin: 07/06/24 17:02 Dose: 0.5 mg Hydromorphone HCl (Hydromorphone Inj 1 Mg/Ml Syringe) 1 mg IV Q3H PRN PRN Reason: SEVERE Pain (Scale 7,8,9,10) Stop: 07/19/24 16:40 Last Admin: 07/05/24 16:58 Dose: 1 mg Hydroxyzine HCl (Hydroxyzine Hcl 25 Mg Tab) 25 mg PO Q8H PRN PRN Reason: Anxiety Stop: 08/04/24 16:40 Promethazine HCl (Phenergan) 12.5 mg in 50.5 mls @ 202 mls/hr IV Q6H PRN PRN Reason: Nausea And Vomiting Stop: 08/04/24 16:40 Dexamethasone 6 mg/ Syringe 1.5 mls @ 1 mls/min IV DAILY [facility] Stop: 07/08/24 09:02 Last Admin: 07/08/24 07:49 Dose: 1 mls/min Influenza Virus Vaccine Quadrival (Do Not Administer Flu Vaccine) 1 each N/A PRN PRN PRN Reason: Notification Stop: 08/04/24 16:40 Ketorolac Tromethamine (Ketorolac Tromethamine 15 Mg/Ml Vial) 15 mg IV Q6H PRN PRN Reason: Pain Last Admin: 07/05/24 20:29 Dose: 15 mg Lorazepam (Lorazepam 0.5 Mg Tab) 0.5 mg PO Q8H PRN PRN Reason: Sedation/Anxiety Stop: 08/04/24 16:40 Lorazepam (Lorazepam 2 Mg/1 Ml Vial) 0.5 mg IV Q8H PRN PRN Reason: Sedation/Anxiety Stop: 08/04/24 16:40 Magnesium Hydroxide (Magnesium Hydroxide Susp 30 Ml Udc) 30 ml PO Q24H PRN PRN Reason: Constipation Stop: 08/04/24 16:40 Last Admin: 07/07/24 05:45 Dose: 30 ml Magnesium Oxide (Magnesium Oxide 400 Mg Tab) 400 mg PO BID [facility] Stop: 08/06/24 10:49 Last Admin: 07/08/24 07:49 Dose: 400 mg Metoclopramide HCl (Metoclopramide Hcl Inj 5 Mg/Ml 2 Ml Vial) 10 mg IV Q6H PRN PRN Reason: Nausea &/or Vomiting Stop: 08/04/24 16:40 Multivitamins (Multivitamin Tab) 1 tab PO QAM [facility] Stop: 08/05/24 08:59 Last Admin: 07/08/24 07:47 Dose: 1 tab Naloxone HCl (Naloxone Hcl 0.4 Mg/1 Ml Vial/Carp) 0.1 mg IV Q5M PRN PRN Reason: Oversedation/Resp depression Stop: 08/04/24 16:40 Ondansetron HCl (Ondansetron Inj 2 Mg/Ml 2 Ml Vial) 4 mg IV Q6H PRN PRN Reason: Nausea &/or Vomiting Stop: 08/04/24 16:40 Last Admin: 07/06/24 08:31 Dose: 4 mg Ondansetron HCl (Ondansetron 4 Mg Od Tab) 4 mg PO Q6H PRN PRN Reason: Nausea Stop: 08/04/24 16:40 Pneumococcal Polyvalent Vaccine (Do Not Administer Pneumococcal Vaccine) 1 each N/A PRN PRN PRN Reason: Notification Stop: 08/04/24 16:40 Senna/Docusate Sodium (Docusate Sodium/Senna 50/8.6mg Tab) 2 tab PO HS [facility] Stop: 08/04/24 20:59 Last Admin: 07/07/24 19:26 Dose: 2 tab Sodium Biphosphate/Sodium Phosphate (Sod Phosphate/Sod Biphosphate Enema 132 Ml Btl) 132 ml [place] ONE PRN PRN Reason: Constipation Stop: 08/04/24 16:40 Tramadol HCl (Tramadol Hcl 50 Mg Tablet) 50 - 100 mg PO Q4H PRN PRN Reason: Moderate-Severe pain & Pre PT Stop: 08/04/24 16:40 Last Admin: 07/08/24 01:13 Dose: 100 mg Vitamin D (Cholecalciferol 125 Mcg (5,000 Units) Tab) 125 mcg PO BID [facility] Stop: 08/04/24 20:59 Last Admin: 07/08/24 07:47 Dose: 125 mcg
--- NOTE | 2024-07-08 08:38 | Discharge Summary ---
Date of Service July 08, 2024 Admission HPI Per Admitting Provider This is a 69-year-old male who presents with chronic system back and bilateral leg pain and failing course of nonoperative care is here for surgical invention. Admission Exam (Per Admitting) Constitutional WD/WN, vitals as above Eyes normal visual carter by confrontation ENMT external ear and nose normal, oropharynx normal Neck normal visual inspection Respiratory normal respiratory effort Cardiovascular Extremities: normal capillary refill Gastrointestinal (Abdomen) Inspection/Auscultation: abdomen normal to inspection Musculoskeletal Extremities: extremities normal to inspection and strength 5/5 throughout Skin no rashes, warm and dry Neurologic normal touch/pain/proprioception and moves all extremities Psychiatric A+Ox3, euthymic affect Eye Contact: good eye contact Discharge Data Consultations 07/05/24 16:41 Consult Hospitalist Routine Procedures Performed Operation Date: 07/05/24 12:15 Actual Procedures p L3-L5 Revision Decompression and Fusion, Spinal Cord Monitoring(Not Applicable) - Vickey Cohen DO Hospital Course (1) Lumbosacral spondylosis with radiculopathy: Ronaldo is being discharged home on postoperative day 3 status post L3-5 decompression and fusion. He had an uneventful hospital course. Pain is controlled. He is doing well in physical therapy. Lab values are stable. He is being discharged home with his CARSON drain intact due to high output and will call our office in 4 days for instructions. Discharge Instructions ACTIVITY RECOMMENDATIONS: SELF CARE INSTRUCTIONS AFTER THORACIC/LUMBAR FUSIONS 1. You may walk to your tolerance. It is good exercise for your legs and back. Expect some back and intermittent leg aches and pains. 2. You may perform "counter-top" level activities (make a sandwich, enoch with a project, etc.). 3. No bending or lifting of more than 10 pounds or back twisting of any nature (roll like a log when turning in bed). 4. You may ride in a car for 20-30 minutes at a time. No driving until after your first visit with your doctor. 5. Frequent changes of position and restricting sitting to 30 minutes at a time will help limit the amount of back spasms and stiffness you may experience. 6. You may discontinue the use of ambulatory aids (cane, crutches, etc.) once your strength and confidence allow. 7. You may paper production engineer the shower and let water strike your incision when you arr debbie home at least once daily. Do not take a tub bath, sit in a hot tub or go into a swimming pool until after your first recheck in the office. 8. You may resume previous diet. SPECIAL CARE INSTRUCTIONS: VERY IMPORTANT TO READ AND REVIEW A. Your surgical incision has been closed with a cosmetic suture under the skin that will dissolve in about 6 weeks. In 14 days, you can use a pair of clean scissors and cut the suture that is left outside of the skin at the ends of your incision. 1. The small skin tapes can be removed 7 days after surgery if they have not fallen off by that point. 2. You may keep the wound open to air as much as possible to promote healing after post-op day number 5 unless told otherwise by your doctor. 3. If you think the wound looks like it is becoming infected (redness or worsening drainage) and/or you are experiencing fever, chill or worsening back pain and muscle spasms, contact the office so that we may evaluate you as soon as possible. B. Complications are uncommon, but please contact us if you have any signs or symptoms of: 1. wound infection (fever higher than 102.5 degrees F, redness, separation of wound, drainage, or increasing pain from the incision) 2. blood clots in legs (pain, swelling, redness and warmth in legs) 3. urinary tract infection (fever higher than 102.5 degrees F, burning upon urination or increased frequency of urination) 4. nerve problems (inability to walk on your toes or heels, numbness, loss of bowel or bladder control) 5. any other symptoms that concern you C. Please call the office at if you have any concerns or questions about your operation or recovery. D. No smoking! Smoking drastically decreases the chance of a solid fusion. E. Do not take any anti-inflammatory medications (Indocin, Advil, Motrin, Aspirin, Naprosyn, etc.) as these may inhibit the chance of a solid fusion. Tylenol is okay to take for pain. MANAGING PAIN AFTER SPINAL SURGERY 1. Narcotic medication is intended for short-term use and will be provided for surgical pain. Surgical pain usually lasts for a period of 4-6 weeks. Narcotic medication includes Percocet, Vicodin, Darvocet, Tylenol #3 or Lortab. 2. Longer-term pain is more appropriately treated with non-narcotic medication such as Tylenol ES. 3. Muscle spasm is not appropriately treated with narcotics. Muscle relaxers such as Soma, Flexeril or Skelaxin can be used along with Tylenol ES. 4. Remember that we all live with some "aches and pains". This is not unusual or uncommon after an injury or as we get older. a. Back pain is expected and may include muscle spasms for 4 to 6 weeks after surgery. The pain should gradually improve. If the pain worsens for no apparent reason, please contact the office. b. Intermittent leg pain may also be experienced and should not be concerned about unless it worsens for no apparent reason. If so, please contact the office. 5. We will provide appropriate medication within the normal guidelines of their prescribed use. We will also be very cautious and aware of potential abuse and extended duration of patients' medication needs. a. Pain medications are for your comfort and to assist with sleep and rest so that the tissue can heal. They are not provided in order to return to normal activity and should not be used through the day. To do so or worsening pain at night can result from ongoing tissue damage and development of tolerance to the prescribed medicine. 6. Please allow 2-3 days to process refills. Prescriptions will not be mailed but must be picked up at the office. FOLLOW UP VISIT: Keep your scheduled follow-up appointment. Any questions, please call the office at .
[2024-07-08 09:04] VITALS: PULSE 58
== END 2024-07-08 10:47 | disposition home or self-care (01) | DRG 428 ==
LOC: ASU 10:20 → 3E 14:35

== ENCOUNTER 2024-07-09 09:34 | Inpatient (IN) ==
--- NOTE | 2024-07-09 09:47 | Emergency Department Note ---
Impression & Plan Back pain Admission ED Provider Note HPI: History obtained from patient. The patient is a 69-year-old gentleman who presents to the emergency department with a chief complaint of back pain as well as urinary retention and constipation. Patient is postoperative day #4 after a lumbar surgery with Dr. Cohen. Patient states that he was able to urinate until about 6:00 this morning and then he had some issues and was not able to urinate. Patient denies any recent fever, denies any saddle anesthesia. Patient states he was having some worsening lumbar back pain therefore he came to the ER to be assessed. On arrival here to the ED the patient is ambulatory, he is hemodynamically stable on arrival, afebrile, saturating well on room air. ROS: - Per HPI Differential Diagnosis: Postoperative lumbar pain, epidural hematoma, epidural abscess, wound infection, urinary retention secondary to anesthesia, cauda equina syndrome, amongst other potential pathologies. *Outpatient medications and allergy history reviewed. PE: General: Alert HEENT: Normocephalic, trachea midline Eyes: Extraocular eye movement is intact, no scleral erythema Pulmonary: Clear to auscultation bilaterally, no wheezing Cardio: Regular rate and rhythm GI: Abdomen is soft to palpation : No suprapubic tenderness MSK: No evidence of trauma or malformation of the extremities, no edema Skin: No evidence of rash Neuro: Alert, no focal deficits, ambulates lower extremity spontaneously without issue Psychiatric: Cooperative INDEPENDENT INTERPRETATIONS: youth nutritional monitor: (As interpreted by myself): - An order was placed for continuous cardiac monitoring - Patient was noted to be in sinus rhythm with a rate of 58 Interventions provided in ED: -IV Dilaudid, IV Zofran, Good catheter placement Medical Decision Making: IV was established and lab work ordered, patient was given IV Dilaudid and IV Zofran for pain. Lab work shows no leukocytosis, hemoglobin is stable, platelet count is normal, CMP does not show any critical findings. Urinalysis does not show any evidence of blood or infection. I did discuss the patient's presentation with his surgeon, Dr. Cohen, and at this time he will admit the patient to his service for further management. Following my conversation with Dr. Cohen, he will decide on the need for imaging after the patient is admitted. Patient does have motor and sensory function intact in the bilateral lower extremities, he does not have any saddle anesthesia on my exam, he denies any recent fever. Low suspicion for cauda equina syndrome at this time. Patient was in agreement to this plan on my reassessment, he states his pain is greatly improved following the above interventions, patient was placed for admission in stable condition. Consultants/Discussions held with other healthcare providers: -Dr. Cohen, orthopedic/spinal surgery Disposition discussion held by myself with: -Patient and family at bedside Diagnosis: 1. Postoperative lumbar back pain, acute 2. Urinary retention, acute Disposition: Admission Mamadou Watkins DO Emergency Medicine Past Med/Surg History Problem List (Updated 07/09/24 @ 14:29 by Mamadou Watkins DO) Back pain (Acute) Hypomagnesemia Lumbosacral spondylosis with radiculopathy Encounter for pre-operative examination Medical History History of asthma no recent problems, no longer uses inhaler History of postoperative nausea and vomiting severe, iv meds have not helped in past, questioning scop patch? Hx of rotator cuff tear RT.- surgery Hx of fracture of ankle RT, fusion Hx of sarcoidosis (1982) no current issues History of COVID-19 06/10, not hospitalized, fatigue, body aches>resolved Surgical History Hx of hernia repair triple hernia - nuriss tanya History of right hip replacement (11/2023) dr. gallardo - [facility] Hx of bilateral cataract extraction (2021) History of back surgery x2; "ruptured" discs; removal bone spurs from spine Hx of rotator cuff surgery rt History of open reduction and internal fixation (ORIF) procedure RT ankle fusion History of bronchoscopy Hx of cervical spine surgery x4; fusion "between your shoulders up to the last 2 of the top of my neck" c3-t2, anterior and posterior limited rom in all directions Hx of colonoscopy Family History Other No pertinent family history Social History Smoking Status: Never smoker Second Hand Exposure: No; Do You Dip or Chew Tobacco: No; Hx Alcohol Use: Yes Alcohol type: beer Hx Substance Use: No Preferred Language: Gabonese Communication Ability: Effective Environmental Services Technician Required: No Beliefs That Will Affect Care: None Current Living Situation: Spouse Feels Safe at Home: Yes Assistive Devices: Cane and Walker Allergies Allergies Allergy/AdvReac Type Severity Reaction Status Date / Time bee venom protein (honey bee) Allergy Severe Anaphylaxis Verified 07/05/24 10:50 hydrocodone Allergy Severe Hives Verified 07/05/24 10:50 morphine Allergy Severe Hives Verified 07/05/24 10:50 oxycodone Allergy Severe Hives Verified 07/05/24 10:50 Home Meds Home Medications Medication Instructions Recorded Confirmed multivitamin 1 tab PO QAM 01/07/22 07/09/24 sennosides 8.6 mg tablet 8.6 mg PO QAM 01/07/22 07/09/24 ascorbic acid (vitamin C) 250 mg 250 mg PO DAILY 06/30/24 07/09/24 tablet (Vitamin C) cholecalciferol (vitamin D3) 125 125 mcg PO BID 06/30/24 07/09/24 mcg (5,000 unit) tablet (Vitamin D3) gabapentin 300 mg tablet 300 mg PO TID 06/30/24 07/09/24 saw palmetto 160 mg capsule 160 mg PO QAM 06/30/24 07/09/24 Previous Rx's Medication Instructions Recorded tramadol 50 mg tablet 50 mg PO Q6H PRN pain, moderate 07/06/24 #30 tabs Results & Data (ED) Vital Signs Vital Signs - 24 hr 07/09/24 09:38 07/09/24 10:12 07/09/24 10:14 Temperature 36.5 C Temperature Source Temporal Artery Scan Pulse Rate 65 60 Pulse Rate [Apical] 58 L Pulse Rate from SpO2 Sensor Pulse Rhythm Pulse Rhythm [Apical] Regular Pulse Strength [Apical] Normal Respiratory Rate 18 20 Respiratory Effort / Characteristics Non-Labored Spontaneous Non-Labored Spontaneous Respiratory Depth Normal Normal Respiratory Pattern Regular Blood Pressure 136/80 Blood Pressure [Left Arm] 150/83 H Blood Pressure Mean 98 Blood Pressure Mean [Left Arm] 105 Blood Pressure Position [Left Arm] Semi-fowlers Pulse Oximetry 94 97 Oxygen Delivery Method Room Air Room Air Sepsis Recent Fever Within 48 Hours No Sepsis New/Unexplained Change in Mental Status No Sepsis Action Taken by Nursing No Action Required 07/09/24 10:14 07/09/24 10:30 07/09/24 11:45 Temperature Temperature Source Pulse Rate 58 L 57 L 53 L Pulse Rate [Apical] Pulse Rate from SpO2 Sensor 57 L 54 L Pulse Rhythm Regular Pulse Rhythm [Apical] Pulse Strength [Apical] Respiratory Rate 18 16 16 Respiratory Effort / Characteristics Respiratory Depth Respiratory Pattern Blood Pressure 127/75 Blood Pressure [Left Arm] Blood Pressure Mean 92 Blood Pressure Mean [Left Arm] Blood Pressure Position [Left Arm] Pulse Oximetry 98 99 95 Oxygen Delivery Method Room Air Room Air Room Air Sepsis Recent Fever Within 48 Hours Sepsis New/Unexplained Change in Mental Status Sepsis Action Taken by Nursing 07/09/24 12:15 07/09/24 12:33 07/09/24 12:48 Temperature Temperature Source Pulse Rate 54 L 57 L 53 L Pulse Rate [Apical] Pulse Rate from SpO2 Sensor 54 L 56 L 53 L Pulse Rhythm Pulse Rhythm [Apical] Pulse Strength [Apical] Respiratory Rate 16 15 15 Respiratory Effort / Characteristics Respiratory Depth Respiratory Pattern Blood Pressure 120/73 Blood Pressure [Left Arm] Blood Pressure Mean 88 Blood Pressure Mean [Left Arm] Blood Pressure Position [Left Arm] Pulse Oximetry 97 97 93 Oxygen Delivery Method Room Air Sepsis Recent Fever Within 48 Hours Sepsis New/Unexplained Change in Mental Status Sepsis Action Taken by Nursing 07/09/24 12:54 07/09/24 13:30 07/09/24 14:03 Temperature Temperature Source Pulse Rate 55 L 55 L 58 L Pulse Rate [Apical] Pulse Rate from SpO2 Sensor 56 L 57 L 59 L Pulse Rhythm Pulse Rhythm [Apical] Pulse Strength [Apical] Respiratory Rate 14 16 12 Respiratory Effort / Characteristics Respiratory Depth Respiratory Pattern Blood Pressure 120/73 130/71 Blood Pressure [Left Arm] Blood Pressure Mean 88 90 Blood Pressure Mean [Left Arm] Blood Pressure Position [Left Arm] Pulse Oximetry 98 98 98 Oxygen Delivery Method Room Air Room Air Room Air Sepsis Recent Fever Within 48 Hours Sepsis New/Unexplained Change in Mental Status Sepsis Action Taken by Nursing 07/09/24 14:11 Temperature Temperature Source Pulse Rate 55 L Pulse Rate [Apical] Pulse Rate from SpO2 Sensor Pulse Rhythm Pulse Rhythm [Apical] Pulse Strength [Apical] Respiratory Rate Respiratory Effort / Characteristics Respiratory Depth Respiratory Pattern Blood Pressure Blood Pressure [Left Arm] Blood Pressure Mean Blood Pressure Mean [Left Arm] Blood Pressure Position [Left Arm] Pulse Oximetry Oxygen Delivery Method Sepsis Recent Fever Within 48 Hours Sepsis New/Unexplained Change in Mental Status Sepsis Action Taken by Nursing Laboratory Data 07/09/24 09:55 07/09/24 09:55 Lab Results 07/09/24 07/09/24 Range/Units 09:55 10:10 WBC 9.87 (4.8-10.8) K/ul RBC 4.10 L (4.70-6.10) M/uL Hgb 12.6 L (14.0-18.0) g/dl Hct 38.1 L (42.0-52.0) % MCV 92.9 (80.0-100.0) fL MCH 30.7 (25.0-34.0) pg MCHC 33.1 (32.0-36.0) g/dL RDW Std Deviation 46.2 (36.4-46.3) fL RDW Coeff of [place] 13.5 (11.5-14.5) % Plt Count 199 (130-400) K/uL MPV 10.2 (9.4-12.4) fL Immature Gran % (Auto) 0.7 % Neut % (Auto) 68.7 % Lymph % (Auto) 19.6 % Floyd % (Auto) 10.2 % Eos % (Auto) 0.6 % Baso % (Auto) 0.2 % Neut # (Auto) 6.78 H (1.40-6.50) K/uL Lymph # (Auto) 1.93 (1.20-3.40) K/uL Floyd # (Auto) 1.01 H (0.11-0.59) K/uL Eos # (Auto) 0.06 (0.00-0.50) K/uL Baso # (Auto) 0.02 (0.00-0.20) K/uL Immature Gran # (Auto) 0.07 (0.01-0.20) K/uL Sodium 137 (136-145) mmol/L Potassium 3.9 (3.5-5.1) mmol/L Chloride 101 (98-107) mmol/L Carbon Dioxide 29 (21-32) mmol/L Anion Gap 7 (3-11) BUN 22 (6-23) mg/dl Creatinine 1.19 (0.6-1.4) mg/dl Est Cr Clr Drug Dosing 61.1 ml/min eGFR 65.31 BUN/Creatinine Ratio 18.5 (10-20) Glucose 102 H (70-99(Fasting)) mg/dl Calcium 9.7 (8.6-10.3) mg/dl Total Bilirubin 1.0 (0.2-1.0) mg/dl AST 24 (13-39) U/L ALT 18 (7-52) U/L Alkaline Phosphatase 57 (34-104) U/L Total Protein 7.4 (6.0-8.3) gm/dl Albumin 4.5 (3.4-5.0) gm/dl Globulin 2.9 (2.5-4.0) gm/dl Albumin/Globulin Ratio 1.6 (0.9-2) Lipase 33 (11-82) U/L Urine Color Yellow Urine Appearance Clear (Clear) Urine pH 7.5 (4.5-7.5) Ur Specific [place] 1.016 (1.000-1.030) Urine Protein Negative (Negative) Urine Glucose (UA) Negative (Negative) Urine Ketones Negative (Negative) Urine Blood Negative (Negative) Urine Nitrite Negative (Negative) Urine Bilirubin Negative (Negative) Urine Urobilinogen Negative (Negative) Ur Leukocyte Esterase Negative (Negative) Administered Medications Discontinued Medications Hydromorphone HCl (Hydromorphone Inj 1 Mg/Ml Syringe) 1 mg IV NOW STA Stop: 07/09/24 09:54 Last Admin: 07/09/24 10:24 Dose: 1 mg Documented By: Ondansetron HCl (Ondansetron Inj 2 Mg/Ml 2 Ml Vial) 4 mg IV NOW STA Stop: 07/09/24 09:54 Last Admin: 07/09/24 10:24 Dose: 4 mg Documented By: Discharge Plan Visit Data Chief Complaint: Referred by Doctor Stated Complaint: REFERRED BY DOCTOR- UNABLE TO VOID- SURG FRIDAY ED Provider: Mamadou Watkins Discharge Problem: Back pain Forms Stand Alone Forms: [facility] Prescriptions Prescriptions: No Action multivitamin Tablet 1 tab PO QAM sennosides 8.6 mg Tablet 8.6 mg PO QAM saw palmetto 160 mg Capsule 160 mg PO QAM Rx Instructions: give with meal/snack ascorbic acid (vitamin C) [Vitamin C] 250 mg Tablet 250 mg PO DAILY gabapentin 300 mg Tablet 300 mg PO TID cholecalciferol (vitamin D3) [Vitamin D3] 125 mcg (5,000 unit) Tablet 125 mcg PO BID tramadol 50 mg tablet 50 mg PO Q6H PRN (Reason: pain, moderate) Qty: 30 0RF Referrals Referrals: Chetna Larry PA-C [Primary Care Provider] -
[2024-07-09 10:15] LABS: Basophils # (auto) 0.02 K/uL (0.00-0.20); Basophils % (auto) 0.2 %; Eosinophils # (auto) 0.06 K/uL (0.00-0.50); Eosinophils % (auto) 0.6 %; Hematocrit (blood only) 38.1 % (42.0-52.0); Hemoglobin 12.6 g/dl (14.0-18.0); Immature Granulocytes # (auto) 0.07 K/uL (0.01-0.20); Immature Granulocytes % (auto) 0.7 %; Lymphocytes # (auto) 1.93 K/uL (1.20-3.40); Lymphocytes % (auto) 19.6 %; Mean Corpuscular Hemoglobin 30.7 pg (25.0-34.0); Mean Corpuscular Hgb Conc 33.1 g/dL (32.0-36.0); Mean Corpuscular Volume 92.9 fL (80.0-100.0); Mean Platelet Volume 10.2 fL (9.4-12.4); Monocytes # (auto) 1.01 K/uL (0.11-0.59); Monocytes % (auto) 10.2 %; Neutrophils # (auto) 6.78 K/uL (1.40-6.50); Neutrophils % (auto) 68.7 %; Platelet Count 199 K/uL (130-400); RDW Coefficient of Variation 13.5 % (11.5-14.5); RDW Standard Deviation 46.2 fL (36.4-46.3); White Blood Count 9.87 K/ul (4.8-10.8)
[2024-07-09] MEDS: HYDROmorphone INJ 1 MG/ML SYRINGE IV STA (10:24)
[2024-07-09] MEDS: ONDANSETRON INJ 2 MG/ML 2 ML VIAL IV STA (10:24)
[2024-07-09 10:29] LABS: Albumin Globulin Ratio 1.6 (0.9-2); Albumin Level 4.5 gm/dl (3.4-5.0); BUN Creatinine Ratio 18.5 (10-20); Calcium 9.7 mg/dl (8.6-10.3); Creatinine Clr Calc Pharmacy 61.1 ml/min; Globulin 2.9 gm/dl (2.5-4.0); Potassium 3.9 mmol/L (3.5-5.1); Total Protein 7.4 gm/dl (6.0-8.3)
[2024-07-09 10:49] LABS: Appearance Urine Clear (Clear); Bilirubin Urine Negative (Negative); Blood Urine Negative (Negative); Color Urine Yellow; Glucose Urine UA Negative (Negative); Ketones Urine Negative (Negative); Leukocyte Esterase Urine Negative (Negative); Nitrite Urine Negative (Negative); Protein Urine Negative (Negative); Specific Gravity Urine 1.016 (1.000-1.030); Urobilinogen Urine Negative (Negative); pH Urine 7.5 (4.5-7.5)
--- NOTE | 2024-07-09 11:40 | History & Physical Report ---
Date of Service July 09, 2024 Assessment & Plan (1) Lumbosacral spondylosis with radiculopathy: Plan: I have examined the patient and discussed findings. He did have 700 cc on ultrasound when they scanned his bladder. They placed a Good catheter. He is more comfortable since the catheters been placed. We have discussed options and at this point were going to admit him to our service. Will keep the Good catheter in overnight and do a voiding trial in the morning. We are going to increase his bowel regimen and back his diet to clears. Will continue with GI DVT prophylaxis. Hopefully another day or so in the hospital we can get his constipation to resolve as well as his urinary retention. History of Present Illness Primary Care Provider: Chetna Larry Patient is a pleasant 68-year-old male who had undergone a lumbar decompression revision from L3-L5 on 07/05/2024. He done well while in the hospital but did not have a bowel movement. He was discharged home yesterday. He presented back to the emergency room today due to increasing pain and inability to have a bowel movement and urinary retention. He states he did urinate last night but this morning when he got up he felt like he had to go but could not. He did take tramadol this morning. He was very uncomfortable prompting his visit to the emergency room. He is not having any headaches or blurred vision. He has not noted any weakness in the legs. He has decreased appetite. He is not having nuno radicular complaints. He denies any other numbness, tingling, or paresthesias. Allergies Allergy/AdvReac Type Severity Reaction Status Date / Time bee venom protein (honey bee) Allergy Severe Anaphylaxis Verified 07/05/24 10:50 hydrocodone Allergy Severe Hives Verified 07/05/24 10:50 morphine Allergy Severe Hives Verified 07/05/24 10:50 oxycodone Allergy Severe Hives Verified 07/05/24 10:50 Home Medications Medication Instructions Recorded Confirmed Type multivitamin 1 tab PO QAM 01/07/22 07/09/24 History sennosides 8.6 mg tablet 8.6 mg PO QAM 01/07/22 07/09/24 History ascorbic acid (vitamin C) 250 mg 250 mg PO DAILY 06/30/24 07/09/24 History tablet (Vitamin C) cholecalciferol (vitamin D3) 125 125 mcg PO BID 06/30/24 07/09/24 History mcg (5,000 unit) tablet (Vitamin D3) gabapentin 300 mg tablet 300 mg PO TID 06/30/24 07/09/24 History saw palmetto 160 mg capsule 160 mg PO QAM 06/30/24 07/09/24 History tramadol 50 mg tablet 50 mg PO Q6H PRN pain, moderate 07/06/24 07/09/24 Rx #30 tabs Past Med/Surg History Problem List (Updated 07/07/24 @ 10:46 by Feliberto Rdz MD) Hypomagnesemia Lumbosacral spondylosis with radiculopathy Encounter for pre-operative examination Medical History History of asthma no recent problems, no longer uses inhaler History of postoperative nausea and vomiting severe, iv meds have not helped in past, questioning scop patch? Hx of rotator cuff tear RT.- surgery Hx of fracture of ankle RT, fusion Hx of sarcoidosis (1982) no current issues History of COVID-19 06/10, not hospitalized, fatigue, body aches>resolved Surgical History Hx of hernia repair triple hernia - fabby martínez History of right hip replacement (11/2023) dr. gallardo - [facility] Hx of bilateral cataract extraction (2021) History of back surgery x2; "ruptured" discs; removal bone spurs from spine Hx of rotator cuff surgery rt History of open reduction and internal fixation (ORIF) procedure RT ankle fusion History of bronchoscopy Hx of cervical spine surgery x4; fusion "between your shoulders up to the last 2 of the top of my neck" c3-t2, anterior and posterior limited rom in all directions Hx of colonoscopy Family History Other No pertinent family history Social History Smoking Status: Never smoker Second Hand Exposure: No; Do You Dip or Chew Tobacco: No; Hx Alcohol Use: Yes Alcohol type: beer Hx Substance Use: No Preferred Language: Persian Communication Ability: Effective Telephone Order Clerk Required: No Beliefs That Will Affect Care: None Current Living Situation: Spouse Feels Safe at Home: Yes Assistive Devices: Cane and Walker Physical Exam Physical Exam: On exam he is alert and oriented. He has full strength in both lower extremities. Sensations intact light touch proprioception is intact. His CARSON drain is in place and put out 90 cc of serosanguineous drainage overnight and 40 since this morning. His abdomen is soft and nontender his calves are supple nontender. Visual carter are grossly intact cardiovascular exam reveals no gross abnormalities. Breathing is smooth and unlabored. Results & Data Results & Data Vital Signs (Past 12 Hours) Vital Signs Temp Pulse Pulse Resp BP BP Pulse Ox 07/09/24 10:30 57 L 16 99 07/09/24 10:14 58 L 18 98 07/09/24 10:14 58 L 20 150/83 H 97 07/09/24 10:12 60 07/09/24 09:38 36.5 C 65 18 136/80 94 O2 Del Method 07/09/24 10:30 Room Air 07/09/24 10:14 Room Air 07/09/24 10:14 Room Air 07/09/24 10:12 07/09/24 09:38 Room Air
[2024-07-09] MEDS ORDERED: traMADol HCL 50 MG TABLET PO PRN (15:37)
[2024-07-09] MEDS ORDERED: SOD PHOSPHATE/SOD BIPHOSPHATE ENEMA 132 ML BTL PR PRN (15:37)
[2024-07-09] MEDS ORDERED: PROMETHAZINE 12.5 MG/50.5 ML BAG IV PRN (15:37)
[2024-07-09] MEDS ORDERED: LORazepam 2 MG/1 ML VIAL IV PRN (15:37)
[2024-07-09] MEDS ORDERED: METOCLOPRAMIDE HCL INJ 5 MG/ML 2 ML VIAL IV PRN (15:37)
[2024-07-09] MEDS ORDERED: NALOXONE HCL 0.4 MG/1 ML VIAL/CARP IV PRN (15:37)
[2024-07-09] MEDS ORDERED: ACETAMINOPHEN 1,000 MG/100 ML VIAL IV PRN (15:37)
[2024-07-09] MEDS: HYDROmorphone INJ 0.5 MG/0.5 ML SYR IV PRN (15:53)
[2024-07-09] MEDS: GABAPENTIN 300 MG CAP PO SCH (16:21)
[2024-07-09] MEDS: traMADol HCL 50 MG TABLET PO PRN (16:21)
--- OUTSIDE RECORDS SUMMARY | 2024-07-09 16:53 | External Medical Summary | Continuity of Care Document ---
Author Name Unknown Organization [place] Address [address], [place] [address] Phone [phone] Care Team Providers Care Hotel Or Motel Manager Name Role Phone Cl oDnaldson MD Care Team Information Recei stefan [phone] Problems Active Problems Provider Date Spinal stenosis [...] SIG Qnty Indications Ordering Provider Date Doxycycline [id number] Capsules 2 by mouth for 1 time dose(for tick bite prophylaxis) 2caps M47.26 Avni Farrar DO 06/15/2024 [id number] Capsules 1 by mouth every day day 1, 1 by mouth twice a day day 2, then 1 by mouth three times a day 90caps M47.26 Avni Farrar DO 06/15/2024 [id number] Tablets 1 by mouth as needed 90tabs Avni Farrar DO 11/14/2023 [id number] Capsules take one capsule by mouth daily as needed for pain 30caps M25.512 Avni Farrar DO 11/14/2023 Hernia Support Right MediumMisc wear daily 1units RAHEEL Escamilla 07/05/2022 Multivitamin AdultTablets 1 by mouth every day 90tabs Avni Farrar DO 01/06/2019 Saw [id number] Capsules 1 by mouth every day Unknown Maira-C500mg Tablets 2 by mouth every day Unknown Epipen 2-Pak0.3mg/0.3ML Solution Auto-Inject as directed for bee sting allergy 2units Avni Farrar DO Stool [id number] Capsules 1 by mouth twice a day 60caps Sonja Barnard MD, PhD History Medications Doxycycline [id number] Tablets 1 by mouth twice a day [...] CPT Code Status Date Vaccine Lot # [id number] Given 05/06/2024 Influenza Vac, Split, Preservative Free High Dose Age 65 & > [id number] Given 04/19/2024 Tdap (Tetanus, diphtheria & acel. pertussis) Adacel or Boostrix [id number] 46465 Given 04/17/2023 Influenza Vaccine High Do se 0.5ML Age 65 & > [id number] Given 04/16/2021 Pneumococcal Vaccine/Pneu movax 23 [id number] [id number] Given 04/16/2021 Influenza Vaccine High Do se 0.5ML Age 65 & > [id number] U-FLU Given 06/23/2020 Influenza,Unspecified 34100 Given 03/24/2019 Influenza Vacci ne, Inactivated, Subunit, Adjuvanted, [facility] [id number] 14580 Given 07/07/2018 Pneumococcal Conjugate-Pr evnar 13 21332 Refused 06/15/2024 Moderna Sars-Co v-2 (Cov-19) vacc,100 mcg/ 0.5 mL 12Y+EMR Doc Only [id number] Refused 06/15/2024 Shingrix 05649 Refused 11/06/2022 Moderna Sars-Co v-2 (Covid-19) Vaccine, BiValent Booster 12y+ [id number] Refused 11/06/2022 Moderna Sars-Co v-2 (Cov-19) vacc,100 mcg/ 0.5 mL 12Y+EMR Doc Only [id number] Refused 11/06/2022 Shingrix 35385 Refused 10/30/2020 Moderna Sars-Co v-2 (Cov-19) vacc,100 mcg/ 0.5 mL 12Y+EMR Doc Only [id number] Refused 08/17/2020 Pneumococcal Vaccine/Pneu movax 23 [id number] Refused 05/02/2020 Shingrix Vital Signs Date Vital [...] 5'8.75" BMI (Body Mass Index) 27.1 kg/m2 [place] Body Weight 154 lb Results Test Acquired Date Facility Test Result H/L Range N ote Lipid 05/17/2024 [facility]. [address] [place] [address] [phone] Cholesterol 176 mg/dL 0-200 1 Triglyceride 65 mg/dL 0-150 2 HDLD 56 mg/dL See Comment 3 Measured LDL 130 mg/dL 0-130 4 Calc VLDL 13.0 mg/dL See Comment 5 Chol/HDL 3.1 RATIO See Comment 6 Non-HDL 120 mg/dL See Comment 7 Comp. Met 05/17/2024 [facility]. [address] [facility] [place] [address] [phone] Glucose 93 mg/dL 70-110 BUN 17 mg/dL [...] e/m vis it add on Completed 05/17/2024 20473 Venipuncture Routine Complet ed 05/06/2024 G0008 Influenza Admin Completed 06/20/2022 [id number] Colonoscopy Completed Medical Devices Description No Information Available Encounters Type Date Location Provider Dx Diagnosis Office Visit 06/30/2024 8:30a Will Rai MD Z01.818 Encounter for other preprocedural examination M48.062 Spinal stenosis, lum bar region with neurogenic claudication Office Visit 06/15/2024 8:45a [place] Chetna Pyl e, PA-C M47.26 Other spondylosis with radiculopathy, lumbar region M54.12 Radiculopathy, cervi sary region D86.0 Sarcoidosis of lung K21.9 Gastro-esophageal re flux disease without esophagitis G47.33 Obstructive sleep ap [place] (adult) (pediatric) E78.2 Mixed hyperlipidemia Office Visit 04/21/2024 3:00p [place] Aroldo R Ohnm acht, DO S61.311D Laceration w/o fb of l idx fngr w damage to nail, subs Assessments Date Code Description Provider 06/30/2024 Z01.818 Encounter for ot her preprocedural examination Sakina Rai MD 06/30/2024 M48.062 Spinal stenosis, lumbar region with neurogenic claudication Sakina Rai MD 06/15/2024 M47.26 Other spondylosi s with radiculopathy, lumbar region Chetna Kendy, PA-C 06/15/2024 M54.12 Radiculopathy, cervical jen on Chetna Kendy, PA-C 06/15/2024 D86.0 Sarcoidosis of lung Chetna Kendy, PA-C 06/15/2024 K21.9 Gastro-esophagea l reflux disease without esophagitis Chetna Kendy, PA-C 06/15/2024 G47.33 Obstructive slee p apnea (adult) (pediatric) Chetna Kendy, PA-C 06/15/2024 E78.2 Mixed hyperlipidemia Chetna Kendy, PA-C 05/17/2024 E78.2 Mixed hyperlipidemia Cl Sanchez JR, DO 05/17/2024 E78.2 Mixed hyperlipidemia [facility] [place] 05/06/2024 Z23 Encounter for immunization H eather Kendy, PA-C 04/21/2024 S61.311D Laceration witho ut foreign body of left index finger with damage to nail, subsequent encounter Aroldo Argueta, DO Plan of Treatment Future Appointment(s):* 12/14/2024 8:30 am - Chetna Larry PA-C at [place] * 12/07/2024 7:30 am - [facility] [place] [facility] [place] 06/30/2024 - Sakina Rai MD* Z01.818 Encounter for other preprocedural examination* Comments:* Pt is here for pre-op exam. He is getting labs and imaging through the surgeon. Based on his pmh and physical, he is medically optimized for surgery. * M48.062 Spinal stenosis, lumbar region with neurogenic claudication* Comments: * Pt has a hx of lumbar stenosis with claudication that causes bilateral lower leg pain. He's getting L3 - L5 Revision Decompression and Fusion on 07/05/24. I recommended he hold the celebrex until after the surgery to decrease risk of bleeding and increase tylenol to 1000mg TID instead. Functional Status Description No Information Available Mental Status Description No Information Available Referrals Description No Information Available
[2024-07-09] MEDS: LORazepam 0.5 MG TAB PO PRN (17:19)
[2024-07-09] MEDS: ACETAMINOPHEN 500 MG TAB PO PRN (17:19)
[2024-07-09] MEDS: CHOLECALCIFEROL 125 MCG (5,000 UNITS) TAB PO SCH (20:37)
[2024-07-09] MEDS: DOCUSATE SODIUM/SENNA 50/8.6MG TAB PO SCH (20:37)
[2024-07-09] MEDS: KETOROLAC TROMETHAMINE 15 MG/ML VIAL IV PRN (22:12)
[2024-07-10] MEDS: ASCORBIC ACID 500 MG TAB PO SCH (08:17)
[2024-07-10] MEDS: SENNA 8.6 MG TAB PO SCH (08:17)
[2024-07-10] MEDS: MULTIVITAMIN TAB PO SCH (08:18)
[2024-07-10] MEDS ORDERED: SAW PALMETTO 160 MG PO SCH (09:00)
--- NOTE | 2024-07-10 10:05 | Orthopedic Progress Note ---
Date of Service July 10, 2024 Assessment & Plan (1) Lumbosacral spondylosis with radiculopathy: Plan: Plan at this time we will have him attempt an enema today to see if this can facilitate the bowel motion. Will continue on clear liquid diet until he is re jin to advance. Will discontinue his dressing and drain today. The Good will remain in place. Have arranged for an outpatient follow-up with urology. Admission and Anticipated Discharge Date Admission Date: July 09, 2024 Subjective Back pain is more tolerable. He is comfortable with the Good in place. He has no leg pain. He is on a clear liquid diet and tolerated this well. Still no bowel movement. Physical Exam Physical Exam: On exam he is sitting up at the bedside. Good strength testing. Results & Data Vital Signs (Past 12 Hours) Vital Signs Temp Pulse Resp BP Pulse Ox O2 Del Method 07/10/24 07:52 36.4 C L 68 16 149/83 H 95 Room Air
[2024-07-10] MEDS: SOD PHOSPHATE/SOD BIPHOSPHATE ENEMA 132 ML BTL PR STA (10:55)
[2024-07-10] MEDS: ONDANSETRON 4 MG OD TAB PO PRN (15:19)
[2024-07-10] MEDS: MAGNESIUM HYDROXIDE SUSP 30 ML UDC PO PRN (20:04)
[2024-07-11] MEDS: ONDANSETRON INJ 2 MG/ML 2 ML VIAL IV PRN (05:08)
--- NOTE | 2024-07-11 08:52 | Orthopedic Progress Note ---
Date of Service July 11, 2024 Assessment & Plan (1) Back pain: Plan: I will order a KUB this morning. He is not ready to advance from a clear diet yet. May need mag citrate. Am also concerned about his headaches. He understands to ambulate is much as he can and limit narcotics Admission and Anticipated Discharge Date Admission Date: July 09, 2024 Johan Higgins is here for readmission secondary to constipation and urinary retention. He has a Good intact which good is going to remain intact upon discharge with follow-up with urology as an outpatient. He had some nausea this morning. He had some back pain which is requiring narcotics. He is still on a clear diet. He has not had a bowel movement yet. He also notes some headaches. He has baseline headaches secondary to a posterior cervical procedure years ago. Headaches do seem more positional right now. He also notes some groin and testicular pain overnight Review of Systems Review of Systems: All systems reviewed & are unremarkable except as noted in HPI & below Physical Exam Physical Exam: He sitting up in bed tolerating a clear diet. No acute distress Incision is clean. There is some yellow drainage on the underside of the incision. There is no significant edema. No active drainage or purulence Calf soft and nontender bilaterally Abdomen is hard, nondistended Results & Data Vital Signs (Past 12 Hours) Vital Signs Temp Pulse Resp BP Pulse Ox O2 Del Method 07/11/24 07:43 36.5 C 61 16 114/68 97 Room Air
[2024-07-11] MEDS: SODIUM CHLORIDE 0.9% 1,000 ML IV SCH (10:04)
[2024-07-11] MEDS: MAGNESIUM CITRATE 296 ML/BTL PO ONE (10:04)
--- NOTE | 2024-07-11 10:42 | XRay Report ---
EXAM: Radiograph of the Abdomen 1 View INDICATION: Constipation. TECHNIQUE: Frontal supine view of the abdomen/pelvis. COMPARISON: No relevant prior studies available. FINDINGS: Limitations: None. Gastrointestinal tract: Air and small amounts of formed stool scattered throughout the intestinal tract without distention. Organs: Visualized organ shadows appear grossly normal. Bones/joints: L3-L5 posterior lumbar fusion hardware in the visualized portion of right hip prosthesis intact and well-seated. Degenerative changes noted in the spine. No acute osseous abnormality. Soft tissues: No abnormality noted. No radiopaque foreign body noted. IMPRESSION: Small amounts of formed stool scattered throughout the colon without obstruction. ACT 112: Negative or not required by law. Electronically signed by Lucía Brody 07-11-2024 10:41 AM
[2024-07-11] MEDS ORDERED: bisacodyL 10 MG SUPP PR PRN (11:35)
[2024-07-11] MEDS: CYCLOBENZAPRINE HCL 10 MG TAB PO PRN (20:45)
[2024-07-12] MEDS: LINACLOTIDE 145 MCG CAPSULE PO SCH (08:43)
[2024-07-12] MEDS: SODIUM CHLORIDE 0.9% 1,000 ML IV SCH (10:33)
[2024-07-12 19:35] VITALS: RESP 16
--- NOTE | 2024-07-13 08:52 | Discharge Summary ---
Date of Service July 13, 2024 Admission HPI Per Admitting Provider Patient is a pleasant 68-year-old male who had undergone a lumbar decompression revision from L3-L5 on 07/05/2024. He done well while in the hospital but did not have a bowel movement. He was discharged home yesterday. He presented back to the emergency room today due to increasing pain and inability to have a bowel movement and urinary retention. He states he did urinate last night but this morning when he got up he felt like he had to go but could not. He did take tramadol this morning. He was very uncomfortable prompting his visit to the emergency room. He is not having any headaches or blurred vision. He has not noted any weakness in the legs. He has decreased appetite. He is not having nuno radicular complaints. He denies any other numbness, tingling, or paresthesias. Principal Diagnosis Postoperative constipation and urinary retention Discharge Data Allergies Allergy/AdvReac Type Severity Reaction Status Date / Time bee venom protein (honey bee) Allergy Severe Anaphylaxis Verified 07/05/24 10:50 hydrocodone Allergy Severe Hives Verified 07/05/24 10:50 morphine Allergy Severe Hives Verified 07/05/24 10:50 oxycodone Allergy Severe Hives Verified 07/05/24 10:50 Hospital Course (1) Lumbosacral spondylosis with radiculopathy: Patient was admitted with postoperative back pain and urinary retention. He also struggling with significant constipation. He progressed appropriately throughout his stay. Tolerating physical therapy bowels working. CARSON drain ultimately removed. Patient was subsequently discharged home with Good catheter in place. He will be following up with urology in the next week and has a scheduled appointment with spine as well. Discharge orders instructions from the chart for further review. Total Time Total Time Spent Total Time Spent (In Minutes): 20 minutes Discharge Plan Discharge Items Patient Disposition: Home - Self-Care Reason For Visit: REFERRED BY DOCTOR- UNABLE TO VOID- SURG FRIDAY Discharge Diagnosis: Lumbar spinal stenosis with radiculopathy Activity: As commented below Non-emergency contact: Primary Care Provider Call non-emergency contact if: you have any medication questions Follow-up/Referrals: Chetna Larry PA-C [Primary Care Provider] - Diet: Regular Addtl Attending Provider Instructions: ACTIVITY RECOMMENDATIONS: SELF CARE INSTRUCTIONS AFTER THORACIC/LUMBAR FUSIONS 1. You may walk to your tolerance. It is good exercise for your legs and back. Expect some back and intermittent leg aches and pains. 2. You may perform "counter-top" level activities (make a sandwich, enoch with a project, etc.). 3. No bending or lifting of more than 10 pounds or back twisting of any nature (roll like a log when turning in bed). 4. You may ride in a car for 20-30 minutes at a time. No driving until after your first visit with your doctor. 5. Frequent changes of position and restricting sitting to 30 minutes at a time will help limit the amount of back spasms and stiffness you may experience. 6. You may discontinue the use of ambulatory aids (cane, crutches, etc.) once your strength and confidence allow. 7. You may cupola liner helper the shower and let water strike your incision when you arrive home at least once daily. Do not take a tub bath, sit in a hot tub or go into a swimming pool until after your first recheck in the office. 8. You may resume previous diet. SPECIAL CARE INSTRUCTIONS: VERY IMPORTANT TO READ AND REVIEW A. Your surgical incision has been closed with a cosmetic suture under the skin that will dissolve in about 6 weeks. In 14 days, you can use a pair of clean scissors and cut the suture that is left outside of the skin at the ends of your incision. 1. The small skin tapes can be removed 7 days after surgery if they have not fallen off by that point. 2. You may keep the wound open to air as much as possible to promote healing after post-op day number 5 unless told otherwise by your doctor. 3. If you think the wound looks like it is becoming infected (redness or worsening drainage) and/or you are experiencing fever, chill or worsening back pain and muscle spasms, contact the office so that we may evaluate you as soon as possible. B. Complications are uncommon, but please contact us if you have any signs or symptoms of: 1. wound infection (fever higher than 102.5 degrees F, redness, separation of wound, drainage, or increasing pain from the incision) 2. blood clots in legs (pain, swelling, redness and warmth in legs) 3. urinary tract infection (fever higher than 102.5 degrees F, burning upon urination or increased frequency of urination) 4. nerve problems (inability to walk on your toes or heels, numbness, loss of bowel or bladder control) 5. any other symptoms that concern you C. Please call the office at if you have any concerns or questions about your operation or recovery. D. No smoking! Smoking drastically decreases the chance of a solid fusion. E. Do not take any anti-inflammatory medications (Indocin, Advil, Motrin, Aspirin, Naprosyn, etc.) as these may inhibit the chance of a solid fusion. Tylenol is okay to take for pain. MANAGING PAIN AFTER SPINAL SURGERY 1. Narcotic medication is intended for short-term use and will be provided for surgical pain. Surgical pain usually lasts for a period of 4-6 weeks. Narcotic medication includes Percocet, Vicodin, Darvocet, Tylenol #3 or Lortab. 2. Longer-term pain is more appropriately treated with non-narcotic medication such as Tylenol ES. 3. Muscle spasm is not appropriately treated with narcotics. Muscle relaxers such as Soma, Flexeril or Skelaxin can be used along with Tylenol ES. 4. Remember that we all live with some "aches and pains". This is not unusual or uncommon after an injury or as we get older. a. Back pain is expected and may include muscle spasms for 4 to 6 weeks after surgery. The pain should gradually improve. If the pain worsens for no apparent reason, please contact the office. b. Intermittent leg pain may also be experienced and should not be concerned about unless it worsens for no apparent reason. If so, please contact the office. 5. We will provide appropriate medication within the normal guidelines of their prescribed use. We will also be very cautious and aware of potential abuse and extended duration of patients' medication needs. a. Pain medications are for your comfort and to assist with sleep and rest so that the tissue can heal. They are not provided in order to return to normal activity and should not be used through the day. To do so or worsening pain at night can result from ongoing tissue damage and development of tolerance to the prescribed medicine. 6. Please allow 2-3 days to process refills. Prescriptions will not be mailed but must be picked up at the office. FOLLOW UP VISIT: Keep your scheduled follow-up appointment. Any questions, please call the office at . Pending Studies at Discharge: No Stand-Alone Forms: My [facility], Smoking Cessation Medications and DC Order Prescriptions: New cyclobenzaprine 10 mg Tablet 10 mg PO Q8 PRN (Reason: muscle spasm) Qty: 20 0RF Continued multivitamin Tablet 1 tab PO QAM sennosides 8.6 mg Tablet 8.6 mg PO QAM saw palmetto 160 mg Capsule 160 mg PO QAM Rx Instructions: give with meal/snack ascorbic acid (vitamin C) [Vitamin C] 250 mg Tablet 250 mg PO DAILY gabapentin 300 mg Tablet 300 mg PO TID cholecalciferol (vitamin D3) [Vitamin D3] 125 mcg (5,000 unit) Tablet 125 mcg PO BID tramadol 50 mg tablet 50 mg PO Q6H PRN (Reason: pain, moderate) Qty: 30 0RF Discharge Orders: Discharge Order (Routine); Ordered 07/13/24 Ordered By: Vickey Cohen Admission Data Admit Date/Time: 07/09/24 11:38 Attending Provider: Vickey Cohen Admit Provider: Vickey Cohen Primary Care Provider: Chetna Larry Other Interventions: Discharge Summary Assessment (RN) Last Done: 07/13/24 08:42
[2024-07-13 09:01] VITALS: BP 104/61; PULSE 60; TEMP 98.1; O2SAT 98
== END 2024-07-13 11:00 | disposition home or self-care (01) | DRG 392 ==
LOC: ED 09:34 → 3N 11:38